=== PATIENT | male | born 1965 | race African-American/Black ===

== ENCOUNTER 2021-06-20 12:51 | Emergency (ER) | payer OTHER | END 2021-06-20 15:40 | disposition home or self-care (01) | LOC: CSHERS 12:51 | DX: M25.521 Pain in right elbow (principal); M10.9 Gout, unspecified; I12.9 Hypertensive chronic kidney disease with stage 1 through stage 4 chronic kidney disease, or unspecified chronic kidney disease; N18.30 Chronic kidney disease, stage 3 unspecified; W19.XXXA Unspecified fall, initial encounter ==

== ENCOUNTER 2021-10-03 15:38 | Inpatient (IN) | payer OTHER ==
[2021-10-03] MEDS ORDERED: Ketorolac Tromethamine 30 MG/ML VIAL ONE (16:16)
[2021-10-03] MEDS ORDERED: Cefepime 2 GM VIAL ONE (16:16)
[2021-10-03] MEDS ORDERED: Vancomycin HCl 500 MG VIAL ONE (16:17)
[2021-10-03] MEDS ORDERED: Clindamycin/D5W 900 MG in Premix Bag 1 BAG IVPB SCH (16:30)
[2021-10-03 16:47] LABS: #Monocytes 1.8 10x3/uL (0.0-1.1); #Neutrophils 16.9 10x3/uL (1.5-8.4); %Basophils 0.2 % (0.0-2.0); %Lymphocytes 5.1 % (18.0-47.0); %Neutrophils 84.9 % (40.0-75.0); Hemoglobin 10.7 g/dL (13.5-17.5); Mean Corpuscular Hemoglobin 31.8 pg (27.0-33.0); Mean Corpuscular Volume 88.4 fl (81.2-95.1); Mean Platelet Volume 9.6 fl (7.4-10.4); Platelet Count 346 10x3/uL (150-450); RBC Distribution Width 11.5 % (11.5-14.5); Red Blood Cell (RBC) Count 3.36 10x6/uL (4.32-5.72); White Blood Cell (WBC) Count 19.9 10x3/uL (3.5-10.5)
[2021-10-03 17:08] LABS: ALT (SGPT) 11 U/L (8-55); AST (SGOT) 22 U/L (5-34); Albumin 3.5 g/dL (3.5-5.0); Alkaline Phosphatase 123 U/L (40-110); Anion Gap 18 mmol/L (10-20); BUN (Urea Nitrogen) 17 mg/dL (8.4-25.7); Bilirubin, Total 0.8 mg/dL (0.2-1.2); Calc. Creatinine Clearance 0 mL/min (70-130); Calcium 9.8 mg/dL (7.8-10.44); Carbon Dioxide 17 mmol/L (22-29); Chloride 96 mmol/L (98-107); Estimated GFR 59; Globulin 5.2 g/dL (2.4-3.5); Glucose 146 mg/dL (70-105); Potassium 4.9 mmol/L (3.5-5.1); Protein, Total 8.7 g/dL (6.0-8.3); Sodium 126 mmol/L (136-145)
[2021-10-03] MEDS ORDERED: Communication Order-Pharmacy FS PRN (19:37)
[2021-10-03] MEDS ORDERED: Piperacillin/Tazobactam 3.375 GM in Sodium Chloride 0.9% 100 ML IVPB SCH (19:45)
[2021-10-03 20:02] VITALS: BMI 24.2
[2021-10-03 20:20] LABS: Magnesium 1.4 mg/dL (1.6-2.6); Uric Acid 10.1 mg/dL (3.5-7.2)
[2021-10-03] MEDS: Lactated Ringer's 1,000 ML IV SCH (20:36)
[2021-10-03] MEDS: Labetalol HCl 100 MG TAB PO SCH (20:38)
[2021-10-03] MEDS: Piperacillin/Tazobactam 3.375 GM in Sodium Chloride 0.9% 100 ML IVPB SCH (23:23)
[2021-10-04 01:23] LABS: SARS-CoV-2 NAA Rapid Test Not Detected (NotDetected)
[2021-10-04 04:34] LABS: #Monocytes 1.6 10x3/uL (0.0-1.1); #Neutrophils 14.2 10x3/uL (1.5-8.4); %Basophils 0.2 % (0.0-2.0); %Eosinophils 0.1 % (0.0-6.0); %Lymphocytes 4.5 % (18.0-47.0); %Monocytes 9.4 % (0.0-10.0); %Neutrophils 85.1 % (40.0-75.0); Hemoglobin 9.1 g/dL (13.5-17.5); Mean Corpuscular HGB CONC 36.8 g/dL (32.0-36.0); Mean Corpuscular Hemoglobin 32.2 pg (27.0-33.0); Mean Corpuscular Volume 87.3 fl (81.2-95.1); Mean Platelet Volume 9.2 fl (7.4-10.4); Platelet Count 313 10x3/uL (150-450); RBC Distribution Width 11.4 % (11.5-14.5); Red Blood Cell (RBC) Count 2.83 10x6/uL (4.32-5.72); White Blood Cell (WBC) Count 16.8 10x3/uL (3.5-10.5)
[2021-10-04 04:47] LABS: Anion Gap 15 mmol/L (10-20); BUN (Urea Nitrogen) 15 mg/dL (8.4-25.7); Calc. Creatinine Clearance 66 mL/min (70-130); Calcium 9.1 mg/dL (7.8-10.44); Carbon Dioxide 18 mmol/L (22-29); Chloride 100 mmol/L (98-107); Estimated GFR 72; Glucose 123 mg/dL (70-105); Potassium 4.4 mmol/L (3.5-5.1); Sodium 129 mmol/L (136-145)
[2021-10-04 05:02] LABS: Ferritin 587.79 ng/mL (22-322)
[2021-10-04] MEDS: Vancomycin HCl 750 MG in Sodium Chloride 0.9% 250 ML 250 ML IVPB SCH ×2 (05:43→18:58)
[2021-10-04] MEDS: Lactated Ringer's 1,000 ML IV SCH ×3 (05:44→23:54)
[2021-10-04] MEDS ORDERED: Sodium Chloride 0.9% 250 ML 250 ML ONE (05:45)
[2021-10-04] MEDS: Piperacillin/Tazobactam 3.375 GM in Sodium Chloride 0.9% 100 ML IVPB SCH ×3 (08:56→23:54)
[2021-10-04] MEDS: Labetalol HCl 100 MG TAB PO SCH (08:57)
[2021-10-04] MEDS: Enoxaparin Sodium 40 MG/0.4 ML SYRINGE SC SCH (08:57)
[2021-10-04] MEDS ORDERED: Magnesium 2 GM/50 ML(in water) 2 GM in Premix Bag 1 BAG IVPB SCH (13:00)
[2021-10-04] MEDS ORDERED: Propranolol HCl 20 MG TAB PO SCH (15:00)
[2021-10-04] MEDS ORDERED: busPIRone HCl 5 MG TAB PO SCH (15:00)
[2021-10-04] MEDS: Metoprolol Tartrate 25 MG TAB PO SCH (21:23)
[2021-10-04] MEDS: Famotidine 20 MG TAB PO SCH (21:23)
[2021-10-05] MEDS: Lactated Ringer's 1,000 ML IV SCH ×3 (04:47→15:36)
[2021-10-05 05:13] LABS: Vancomycin, Trough 14.5 ug/mL
[2021-10-05] MEDS: Vancomycin HCl 750 MG in Sodium Chloride 0.9% 250 ML 250 ML IVPB SCH ×2 (05:59→17:37)
[2021-10-05] MEDS: Metoprolol Tartrate 25 MG TAB PO SCH ×2 (06:10→20:33)
[2021-10-05] MEDS: Levothyroxine Sodium 25 MCG TAB PO SCH (06:10)
[2021-10-05] MEDS ORDERED: Bupivacaine 0.25% HCL 30 ML VIAL ONE (06:59)
[2021-10-05] MEDS ORDERED: PROPOFOL 20 ML ONE (07:04)
[2021-10-05] MEDS ORDERED: Fentanyl 100 MCG/2 ML VIAL ONE (07:04)
[2021-10-05] MEDS ORDERED: Dexamethasone 4 mg/ml Vial ONE (07:34)
[2021-10-05] MEDS ORDERED: Ondansetron PF 4 MG/2 ML Vial ONE (07:34)
[2021-10-05] MEDS ORDERED: Lidocaine 1% PF 5 ML VIAL ONE (07:34)
[2021-10-05] MEDS: Piperacillin/Tazobactam 3.375 GM in Sodium Chloride 0.9% 100 ML IVPB SCH ×3 (10:43→23:53)
[2021-10-05] MEDS: Famotidine 20 MG TAB PO SCH ×2 (11:00→20:33)
[2021-10-05] MEDS: Amlodipine 10 MG TAB PO SCH (11:00)
[2021-10-05] MEDS ORDERED: Cyanocobalamin 1000 MCG/ML VIAL IM SCH (11:00)
[2021-10-05] MEDS: Lisinopril 10 MG TAB PO SCH (11:00)
[2021-10-05] MEDS: Multivitamin W/ Minerals 1 TAB PO SCH (11:01)
[2021-10-05] MEDS: Enoxaparin Sodium 40 MG/0.4 ML SYRINGE SC SCH (11:01)
[2021-10-05] MEDS: Ferrous Sulfate 325 MG TAB PO SCH (11:01)
[2021-10-05] MEDS: Acetaminophen 325 MG TAB PO PRN (18:01)
[2021-10-06] MEDS: Lactated Ringer's 1,000 ML IV SCH ×2 (03:35→09:53)
[2021-10-06] MEDS: Vancomycin HCl 750 MG in Sodium Chloride 0.9% 250 ML 250 ML IVPB SCH ×2 (05:27→17:01)
[2021-10-06] MEDS: Levothyroxine Sodium 25 MCG TAB PO SCH (05:27)
[2021-10-06 05:48] LABS: Vancomycin, Trough 11.1 ug/mL
[2021-10-06] MEDS: Piperacillin/Tazobactam 3.375 GM in Sodium Chloride 0.9% 100 ML IVPB SCH ×3 (09:46→23:19)
[2021-10-06] MEDS: Famotidine 20 MG TAB PO SCH ×2 (09:47→21:37)
[2021-10-06] MEDS: Ferrous Sulfate 325 MG TAB PO SCH (09:47)
[2021-10-06] MEDS: Lisinopril 10 MG TAB PO SCH (09:47)
[2021-10-06] MEDS: Acetaminophen 325 MG TAB PO PRN ×2 (09:47→21:36)
[2021-10-06] MEDS: Multivitamin W/ Minerals 1 TAB PO SCH (09:47)
[2021-10-06] MEDS: Amlodipine 10 MG TAB PO SCH (09:48)
[2021-10-06] MEDS: Enoxaparin Sodium 40 MG/0.4 ML SYRINGE SC SCH (09:48)
[2021-10-06] MEDS: Metoprolol Tartrate 25 MG TAB PO SCH ×2 (09:48→21:37)
[2021-10-06] MEDS: Midazolam HCl 2 mg/2 ml Vial ONE ×2 (16:55→17:03)
[2021-10-06] MEDS: Midazolam HCl 2 mg/2 ml Vial SLOW IVP PRN (17:05)
[2021-10-06] MEDS: Multivitamins, Adult 10 ML, Folic Acid 1 MG, Thiamine HCl 100 MG in Dextrose 5 %-0.45 %... IV SCH (17:22)
[2021-10-07] MEDS: Midazolam HCl 2 mg/2 ml Vial SLOW IVP PRN (00:11)
[2021-10-07] MEDS: Levothyroxine Sodium 25 MCG TAB PO SCH (05:55)
[2021-10-07 06:07] LABS: #Monocytes 1.3 10x3/uL (0.0-1.1); #Neutrophils 12.3 10x3/uL (1.5-8.4); %Basophils 0.1 % (0.0-2.0); %Lymphocytes 5.7 % (18.0-47.0); %Monocytes 8.9 % (0.0-10.0); Hemoglobin 8.6 g/dL (13.5-17.5); Mean Corpuscular HGB CONC 36.4 g/dL (32.0-36.0); Mean Corpuscular Hemoglobin 31.2 pg (27.0-33.0); Mean Corpuscular Volume 85.5 fl (81.2-95.1); Mean Platelet Volume 9.5 fl (7.4-10.4); Platelet Count 436 10x3/uL (150-450); RBC Distribution Width 11.8 % (11.5-14.5); Red Blood Cell (RBC) Count 2.76 10x6/uL (4.32-5.72); White Blood Cell (WBC) Count 14.5 10x3/uL (3.5-10.5)
[2021-10-07 06:08] LABS: Anion Gap 14 mmol/L (10-20); BUN (Urea Nitrogen) 16 mg/dL (8.4-25.7); Calc. Creatinine Clearance 77 mL/min (70-130); Calcium 8.9 mg/dL (7.8-10.44); Carbon Dioxide 21 mmol/L (22-29); Chloride 100 mmol/L (98-107); Estimated GFR 86; Glucose 166 mg/dL (70-105); Magnesium 1.3 mg/dL (1.6-2.6); Potassium 3.3 mmol/L (3.5-5.1); Sodium 132 mmol/L (136-145)
[2021-10-07 06:09] LABS: Vancomycin, Trough 14.8 ug/mL
[2021-10-07] MEDS: Vancomycin HCl 750 MG in Sodium Chloride 0.9% 250 ML 250 ML IVPB SCH (06:16)
[2021-10-07] MEDS: Piperacillin/Tazobactam 3.375 GM in Sodium Chloride 0.9% 100 ML IVPB SCH ×2 (07:45→15:40)
[2021-10-07] MEDS ORDERED: Magnesium 2 GM/50 ML(in water) 2 GM in Premix Bag 1 BAG IVPB SCH (09:00)
[2021-10-07] MEDS: Enoxaparin Sodium 40 MG/0.4 ML SYRINGE SC SCH (10:48)
[2021-10-07] MEDS: Lisinopril 10 MG TAB PO SCH (10:49)
[2021-10-07] MEDS: Metoprolol Tartrate 25 MG TAB PO SCH ×2 (10:49→20:22)
[2021-10-07] MEDS: Multivitamin W/ Minerals 1 TAB PO SCH (10:49)
[2021-10-07] MEDS: Ferrous Sulfate 325 MG TAB PO SCH (10:49)
[2021-10-07] MEDS: Amlodipine 10 MG TAB PO SCH (10:50)
[2021-10-07] MEDS: Famotidine 20 MG TAB PO SCH ×2 (10:50→20:25)
[2021-10-07] MEDS: Colchicine 0.6 MG TAB PO SCH (12:49)
[2021-10-07] MEDS: Multivitamins, Adult 10 ML, Folic Acid 1 MG, Thiamine HCl 100 MG in Dextrose 5 %-0.45 %... IV SCH (16:55)
[2021-10-07] MEDS: Acetaminophen 325 MG TAB PO PRN (20:22)
[2021-10-08] MEDS: Piperacillin/Tazobactam 3.375 GM in Sodium Chloride 0.9% 100 ML IVPB SCH ×2 (01:07→07:45)
[2021-10-08] MEDS ORDERED: Electrolyte Replacement Protocol FS PRN (01:15)
[2021-10-08] MEDS ORDERED: Potassium Chloride 20 MEQ TAB PO SCH (02:00)
[2021-10-08] MEDS: Magnesium 2 GM/50 ML(in water) 2 GM in Premix Bag 1 BAG IVPB SCH ×2 (02:33→03:48)
[2021-10-08] MEDS: Levothyroxine Sodium 25 MCG TAB PO SCH (06:10)
[2021-10-08] MEDS: Enoxaparin Sodium 40 MG/0.4 ML SYRINGE SC SCH (08:52)
[2021-10-08] MEDS: Multivitamin W/ Minerals 1 TAB PO SCH (08:53)
[2021-10-08] MEDS: Metoprolol Tartrate 25 MG TAB PO SCH (08:53)
[2021-10-08] MEDS: Acetaminophen 325 MG TAB PO PRN (08:53)
[2021-10-08] MEDS: Amlodipine 10 MG TAB PO SCH (08:54)
[2021-10-08] MEDS: Ferrous Sulfate 325 MG TAB PO SCH (08:54)
[2021-10-08] MEDS: Lisinopril 10 MG TAB PO SCH (08:54)
[2021-10-08] MEDS: Colchicine 0.6 MG TAB PO SCH (08:55)
[2021-10-08] MEDS: Famotidine 20 MG TAB PO SCH (08:55)
[2021-10-08 09:44] LABS: Magnesium 2.3 mg/dL (1.6-2.6)
[2021-10-08 11:26] VITALS: BP 127/72; TEMP 99.8
[2021-10-08] MEDS: Potassium Chloride 20 MEQ TAB PO SCH ×2 (11:42→13:04)
[2021-10-09] MEDS ORDERED: Multivitamin W/ Minerals 1 TAB PO SCH (09:00)
== END 2021-10-08 12:30 | disposition home or self-care (01) | DRG 854 ==
LOC: CSHERS 15:38 → CSHTELE 19:15
PROVIDERS: ADMIT Family Medicine; ATTEND Internal Medicine
PROC: 0Y6M0ZB Detachment at Right Foot, Partial 2nd Ray, Open Approach (ICD-10-PCS; 2021-10-05)
PROC: HZ2ZZZZ Detoxification Services for Substance Abuse Treatment (ICD-10-PCS; principal; 2021-10-06)
DX: A40.8 Other streptococcal sepsis (principal); E87.1 Hypo-osmolality and hyponatremia; F10.131 Alcohol abuse with withdrawal delirium; I96 Gangrene, not elsewhere classified; M86.8X7 Other osteomyelitis, ankle and foot; M10.9 Gout, unspecified; N18.30 Chronic kidney disease, stage 3 unspecified; D63.1 Anemia in chronic kidney disease; I12.9 Hypertensive chronic kidney disease with stage 1 through stage 4 chronic kidney disease, or unspecified chronic kidney disease; E83.42 Hypomagnesemia; E53.8 Deficiency of other specified B group vitamins; Z20.822 Contact with and (suspected) exposure to COVID-19; Z98.890 Other specified postprocedural states; Z79.899 Other long term (current) drug therapy; Z79.890 Hormone replacement therapy
CPT/HCPCS: 36415; 80048; 80053; 80202; 82565; 82607; 82728; 83605; 83735; 84132; 84484; 84520; 84550; 85025; 85652; 86140; 87040; 87077; 87186; 88305; 88311; 93005; 93306; 93923; 96365; 96367; 96375; 97139; J0692; J1100; J1650; J1885; J2250; J2405; J2543; J2704; J3010; J3370; J3411; J3420; J3475; J3490; J7042; J7050; J7120; S0020; U0002

== ENCOUNTER 2021-10-14 09:27 | Emergency (ER) | payer OTHER | END 2021-10-14 10:08 | disposition home or self-care (01) | LOC: CSHERS 09:27 | DX: M79.89 Other specified soft tissue disorders (principal); I10 Essential (primary) hypertension; M10.9 Gout, unspecified | CPT/HCPCS: 99283 ==

== ENCOUNTER 2021-11-29 13:27 | Observation (INO) | payer OTHER ==
[2021-11-29 13:55] LABS: #Eosinphils 0.1 10x3/uL (0.0-0.5); #Monocytes 1.4 10x3/uL (0.0-1.1); #Neutrophils 10.4 10x3/uL (1.5-8.4); %Basophils 0.2 % (0.0-2.0); %Eosinophils 0.5 % (0.0-6.0); %Monocytes 10.6 % (0.0-10.0); %Neutrophils 78.2 % (40.0-75.0); Hemoglobin 8.9 g/dL (13.5-17.5); Mean Corpuscular HGB CONC 35.3 g/dL (32.0-36.0); Mean Corpuscular Hemoglobin 31.4 pg (27.0-33.0); Mean Platelet Volume 9.3 fl (7.4-10.4); Platelet Count 402 10x3/uL (150-450); Red Blood Cell (RBC) Count 2.83 10x6/uL (4.32-5.72); White Blood Cell (WBC) Count 13.2 10x3/uL (3.5-10.5)
[2021-11-29 14:22] LABS: ALT (SGPT) Less than 6 U/L (8-55); AST (SGOT) 13 U/L (5-34); Albumin 3.2 g/dL (3.5-5.0); Alkaline Phosphatase 85 U/L (40-110); Anion Gap 15 mmol/L (10-20); BUN (Urea Nitrogen) 19 mg/dL (8.4-25.7); Bilirubin, Total 0.3 mg/dL (0.2-1.2); CK (CPK) 47 U/L (30-200); Calc. Creatinine Clearance 0 mL/min (70-130); Calcium 8.4 mg/dL (7.8-10.44); Carbon Dioxide 14 mmol/L (22-29); Chloride 101 mmol/L (98-107); Estimated GFR 54; Globulin 4.1 g/dL (2.4-3.5); Glucose 134 mg/dL (70-105); Potassium 4.2 mmol/L (3.5-5.1); Protein, Total 7.3 g/dL (6.0-8.3); Sodium 126 mmol/L (136-145)
[2021-11-29 18:45] LABS: Bilirubin Neg (Negative); Blood, Urine 25 (Negative); Glucose, Urine (Dipstick) Normal (Negative); Ketone, Urine Negative (Negative); Leukocyte Negative (Negative); Nitrite Negative (Negative); Protein, Urine (Dipstick) 100 mg/dl (Neg-Trace); Specific Gravity, Urine 1.015 (1.005-1.030); Urobilinogen Normal mg/dL (Less than 2)
[2021-11-29 18:46] LABS: Clarity Hazy (Clear)
[2021-11-29 18:55] LABS: Bacteria/HPF 2+ HPF (None Seen); Mucous/LPF Rare LPF (<2+); RBC/HPF 0-3 HPF (0-3); Squamous Epithelial 0-3 HPF (0-3); WBC/HPF 0-3 HPF (0-3)
[2021-11-29] MEDS ORDERED: Senokot S 8.6-50 MG TAB PO PRN (21:22)
[2021-11-29] MEDS ORDERED: Ondansetron PF 4 MG/2 ML Vial IVP PRN (21:22)
[2021-11-29] MEDS ORDERED: Calcium Carbonate 500 MG ChewTAB PO PRN (21:22)
[2021-11-29] MEDS ORDERED: Acetaminophen 325 MG TAB PO PRN (21:22)
[2021-11-29] MEDS ORDERED: Guaifenesin DM 100-10/5 ML UDCUP PO PRN (21:22)
[2021-11-29] MEDS ORDERED: Lorazepam 2 MG/ML VIAL SLOW IVP PRN (21:25)
[2021-11-29] MEDS ORDERED: Metoprolol Tartrate 25 MG TAB PO SCH (21:30)
[2021-11-29] MEDS ORDERED: Thiamine HCl 200 MG/2 ML VIAL SLOW IVP SCH (21:30)
[2021-11-29] MEDS ORDERED: Sodium Chloride 0.9% 500 ML IV SCH (21:30)
[2021-11-29] MEDS ORDERED: Magnesium Sulfate/D5W 1 GM/100 ML BAG IVPB SCH (21:30)
[2021-11-29] MEDS ORDERED: Thiamine HCl 200 MG/2 ML VIAL ONE (23:24)
[2021-11-29] MEDS ORDERED: Magnesium 2 GM/50 ML BAG (IN WATER) ONE (23:24)
[2021-11-29] MEDS ORDERED: chlordiazePOXIDE HCl 5 MG CAP ONE (23:27)
[2021-11-29] MEDS: chlordiazePOXIDE HCl 5 MG CAP PO SCH (23:33)
[2021-11-29] MEDS ORDERED: Metoprolol Tartrate 25 MG TAB ONE (23:40)
[2021-11-30 03:39] LABS: #Basophils 0.1 10x3/uL (0.0-0.2); #Eosinphils 0.2 10x3/uL (0.0-0.5); #Monocytes 1.4 10x3/uL (0.0-1.1); #Neutrophils 8.7 10x3/uL (1.5-8.4); %Basophils 0.4 % (0.0-2.0); %Eosinophils 1.4 % (0.0-6.0); %Monocytes 11.8 % (0.0-10.0); %Neutrophils 74.9 % (40.0-75.0); Hemoglobin 9.3 g/dL (13.5-17.5); Mean Corpuscular HGB CONC 35.9 g/dL (32.0-36.0); Mean Corpuscular Hemoglobin 31.5 pg (27.0-33.0); Mean Corpuscular Volume 87.8 fl (81.2-95.1); Mean Platelet Volume 9.4 fl (7.4-10.4); Platelet Count 443 10x3/uL (150-450); RBC Distribution Width 13.8 % (11.5-14.5); Red Blood Cell (RBC) Count 2.95 10x6/uL (4.32-5.72); White Blood Cell (WBC) Count 11.6 10x3/uL (3.5-10.5)
[2021-11-30 03:58] LABS: Anion Gap 16 mmol/L (10-20); BUN (Urea Nitrogen) 17 mg/dL (8.4-25.7); CK (CPK) 78 U/L (30-200); Calc. Creatinine Clearance 0 mL/min (70-130); Calcium 9.3 mg/dL (7.8-10.44); Carbon Dioxide 15 mmol/L (22-29); Chloride 108 mmol/L (98-107); Estimated GFR 70; Glucose 112 mg/dL (70-105); Magnesium 1.8 mg/dL (1.6-2.6); Phosphorus 2.7 mg/dL (2.3-4.7); Potassium 4.7 mmol/L (3.5-5.1); Sodium 134 mmol/L (136-145)
[2021-11-30] MEDS ORDERED: chlordiazePOXIDE HCl 5 MG CAP ONE (06:04)
[2021-11-30] MEDS: chlordiazePOXIDE HCl 5 MG CAP PO SCH ×3 (06:05→21:10)
[2021-11-30] MEDS: Levothyroxine Sodium 25 MCG TAB PO SCH (06:05)
[2021-11-30] MEDS ORDERED: Aspirin 81 mg Enteric Coated Tablet ONE (07:40)
[2021-11-30] MEDS ORDERED: Metoprolol Tartrate 25 MG TAB ONE (07:40)
[2021-11-30] MEDS ORDERED: Thiamine 100 MG TAB ONE (07:41)
[2021-11-30] MEDS ORDERED: Multivitamin W/ Minerals 1 TAB ONE (07:41)
[2021-11-30] MEDS ORDERED: Enoxaparin Sodium 40 MG/0.4 ML SYRINGE ONE (07:41)
[2021-11-30] MEDS ORDERED: Amlodipine 5 MG TAB ONE (07:42)
[2021-11-30] MEDS ORDERED: Folic Acid 1 MG TAB ONE (07:42)
[2021-11-30] MEDS ORDERED: Famotidine 20 MG TAB ONE (07:43)
[2021-11-30] MEDS: Amlodipine 10 MG TAB PO SCH (07:56)
[2021-11-30] MEDS: Ferrous Sulfate 325 MG TAB PO SCH (07:56)
[2021-11-30] MEDS: Folic Acid 1 MG TAB PO SCH (07:57)
[2021-11-30] MEDS: Thiamine 100 MG TAB PO SCH (07:57)
[2021-11-30] MEDS: Enoxaparin Sodium 40 MG/0.4 ML SYRINGE SC SCH (07:57)
[2021-11-30] MEDS: Multivitamin W/ Minerals 1 TAB PO SCH (07:57)
[2021-11-30] MEDS: Metoprolol Tartrate 25 MG TAB PO SCH ×2 (07:57→21:10)
[2021-11-30] MEDS: Aspirin 81 mg Enteric Coated Tablet PO SCH (07:57)
[2021-11-30] MEDS: Famotidine 20 MG TAB PO SCH ×2 (07:57→21:10)
[2021-11-30 13:00] LABS: Hemoglobin A1c 5.4 % (4.0-6.0)
[2021-11-30 13:57] VITALS: BMI 21.7
[2021-11-30] MEDS ORDERED: Rosuvastatin 10 MG TAB PO SCH (21:00)
[2021-11-30 22:08] LABS: Potassium, Urine 14.1 mmol/L
[2021-12-01] MEDS: Levothyroxine Sodium 25 MCG TAB PO SCH (06:03)
[2021-12-01 06:51] LABS: #Basophils 0.1 10x3/uL (0.0-0.2); #Eosinphils 0.3 10x3/uL (0.0-0.5); #Monocytes 0.9 10x3/uL (0.0-1.1); #Neutrophils 8.3 10x3/uL (1.5-8.4); %Basophils 0.5 % (0.0-2.0); %Eosinophils 2.5 % (0.0-6.0); %Lymphocytes 8.8 % (18.0-47.0); %Monocytes 8.8 % (0.0-10.0); %Neutrophils 78.8 % (40.0-75.0); Hemoglobin 9.4 g/dL (13.5-17.5); Mean Corpuscular HGB CONC 36.4 g/dL (32.0-36.0); Mean Corpuscular Hemoglobin 31.5 pg (27.0-33.0); Mean Corpuscular Volume 86.6 fl (81.2-95.1); Mean Platelet Volume 9.1 fl (7.4-10.4); Platelet Count 464 10x3/uL (150-450); RBC Distribution Width 13.6 % (11.5-14.5); Red Blood Cell (RBC) Count 2.98 10x6/uL (4.32-5.72); White Blood Cell (WBC) Count 10.5 10x3/uL (3.5-10.5)
[2021-12-01 07:09] LABS: ALT (SGPT) 8 U/L (8-55); AST (SGOT) 13 U/L (5-34); Albumin 3.1 g/dL (3.5-5.0); Alkaline Phosphatase 88 U/L (40-110); Anion Gap 13 mmol/L (10-20); BUN (Urea Nitrogen) 16 mg/dL (8.4-25.7); Bilirubin, Total 0.2 mg/dL (0.2-1.2); Calc. Creatinine Clearance 62 mL/min (70-130); Calcium 9.4 mg/dL (7.8-10.44); Carbon Dioxide 18 mmol/L (22-29); Chloride 108 mmol/L (98-107); Estimated GFR 76; Globulin 4.6 g/dL (2.4-3.5); Glucose 132 mg/dL (70-105); Potassium 3.9 mmol/L (3.5-5.1); Protein, Total 7.7 g/dL (6.0-8.3); Sodium 135 mmol/L (136-145)
[2021-12-01] MEDS: Metoprolol Tartrate 25 MG TAB PO SCH (08:50)
[2021-12-01] MEDS: Ferrous Sulfate 325 MG TAB PO SCH (08:50)
[2021-12-01] MEDS: Thiamine 100 MG TAB PO SCH (08:50)
[2021-12-01] MEDS: Enoxaparin Sodium 40 MG/0.4 ML SYRINGE SC SCH (08:50)
[2021-12-01] MEDS: Folic Acid 1 MG TAB PO SCH (08:50)
[2021-12-01] MEDS: Famotidine 20 MG TAB PO SCH (08:50)
[2021-12-01] MEDS: Amlodipine 10 MG TAB PO SCH (08:50)
[2021-12-01] MEDS: Aspirin 81 mg Enteric Coated Tablet PO SCH (08:50)
[2021-12-01] MEDS: Multivitamin W/ Minerals 1 TAB PO SCH (08:50)
[2021-12-01 10:02] LABS: Thyroid Stimulating Hormone 9.4907 uIU/mL (0.35-4.94)
[2021-12-01 11:47] LABS: Free T4 (Free Thyroxine) 0.89 ng/dL (0.70-1.48)
[2021-12-01 18:44] VITALS: BP 92/53; TEMP 97.9
== END 2021-12-01 19:10 | disposition left against medical advice (07) ==
LOC: CSHERS 13:27 → CSHERHOLD 22:58 → INTOOBSV 22:58 → CSHTELE 11-30 12:35
PROVIDERS: ADMIT Emergency Medicine; ATTEND Family Medicine
DX: E87.1 Hypo-osmolality and hyponatremia (principal); N17.9 Acute kidney failure, unspecified; R42 Dizziness and giddiness; F10.929 Alcohol use, unspecified with intoxication, unspecified; I10 Essential (primary) hypertension; F10.930 Alcohol use, unspecified with withdrawal, uncomplicated; D64.9 Anemia, unspecified; M10.9 Gout, unspecified; R73.9 Hyperglycemia, unspecified; I73.9 Peripheral vascular disease, unspecified; E03.9 Hypothyroidism, unspecified; M86.9 Osteomyelitis, unspecified; Z20.822 Contact with and (suspected) exposure to COVID-19; R26.89 Other abnormalities of gait and mobility; Z79.82 Long term (current) use of aspirin; Z79.899 Other long term (current) drug therapy; Z89.421 Acquired absence of other right toe(s)
CPT/HCPCS: 36415; 70450; 71045; 80048; 80053; 81003; 81015; 82436; 82533; 82550; 83036; 83735; 83930; 83935; 84100; 84133; 84300; 84439; 84443; 84481; 84484; 85025; 93005; 96360; 96372; 97139; G0378; J1650; J3411; J3475; J7030; U0003; U0005

== ENCOUNTER 2021-12-12 11:10 | Inpatient (IN) | payer OTHER ==
[2021-12-12 12:06] LABS: Hemoglobin 8.7 g/dL (13.5-17.5); Mean Corpuscular HGB CONC 36.7 g/dL (32.0-36.0); Mean Corpuscular Hemoglobin 30.1 pg (27.0-33.0); Mean Platelet Volume 8.9 fl (7.4-10.4); Platelet Count 661 10x3/uL (150-450); RBC Distribution Width 13.4 % (11.5-14.5); Red Blood Cell (RBC) Count 2.89 10x6/uL (4.32-5.72); White Blood Cell (WBC) Count 24.4 10x3/uL (3.5-10.5)
[2021-12-12 12:07] LABS: MDiff Complete? YES
[2021-12-12 12:18] LABS: PTT 35.5 sec (22.0-33.0); Prothrombin Time 10.9 sec (9.5-12.1)
[2021-12-12 12:21] LABS: ALT (SGPT) 9 U/L (8-55); AST (SGOT) 20 U/L (5-34); Albumin 3.3 g/dL (3.5-5.0); Alkaline Phosphatase 125 U/L (40-110); Anion Gap 17 mmol/L (10-20); BUN (Urea Nitrogen) 22 mg/dL (8.4-25.7); Bilirubin, Total 0.4 mg/dL (0.2-1.2); Calc. Creatinine Clearance 0 mL/min (70-130); Calcium 9.4 mg/dL (7.8-10.44); Carbon Dioxide 11 mmol/L (22-29); Chloride 100 mmol/L (98-107); Estimated GFR 44; Globulin 5.2 g/dL (2.4-3.5); Glucose 148 mg/dL (70-105); Potassium 3.5 mmol/L (3.5-5.1); Protein, Total 8.5 g/dL (6.0-8.3); Sodium 124 mmol/L (136-145)
[2021-12-12 12:42] LABS: Lymphocytes 2 % (21-51); Monocytes 4 % (0-10); Neutrophil 93 % (42-75); Reactive Lymphocytes 1 % (0-10)
[2021-12-12 12:43] LABS: Platelet Morphology Comment Appears Increased
[2021-12-12] MEDS ORDERED: Piperacillin/Tazobactam 3.375 GM VIAL ONE (13:31)
[2021-12-12 14:38] LABS: SARS-CoV-2 NAA Rapid Test Not Detected (NotDetected)
[2021-12-12] MEDS ORDERED: Ondansetron ODT 4 MG TAB PO PRN (17:58)
[2021-12-12] MEDS ORDERED: Lorazepam 1 MG TAB PO PRN (17:58)
[2021-12-12] MEDS ORDERED: Acetaminophen 325 MG TAB PO PRN (17:59)
[2021-12-12] MEDS ORDERED: Electrolyte Replacement Protocol 1 EACH FS SCH (18:00)
[2021-12-12] MEDS ORDERED: HYDROcodone/Acetaminophen 5/325 mg Tablet PO PRN (18:02)
[2021-12-12 21:40] VITALS: BMI 21.7
[2021-12-12] MEDS ORDERED: Vancomycin HCl 500 MG in Sodium Chloride 0.9% 100 ML IVPB SCH (22:00)
[2021-12-12 22:10] LABS: Anion Gap 15 mmol/L (10-20); BUN (Urea Nitrogen) 20 mg/dL (8.4-25.7); Calc. Creatinine Clearance 47 mL/min (70-130); Calcium 8.5 mg/dL (7.8-10.44); Carbon Dioxide 14 mmol/L (22-29); Chloride 103 mmol/L (98-107); Estimated GFR 54; Glucose 126 mg/dL (70-105); Magnesium 1.3 mg/dL (1.6-2.6); Potassium 3.4 mmol/L (3.5-5.1); Sodium 129 mmol/L (136-145)
[2021-12-12] MEDS: Lorazepam 1 MG TAB PO SCH (22:13)
[2021-12-12] MEDS: Piperacillin/Tazobactam 3.375 GM in Sodium Chloride 0.9% 100 ML IVPB SCH (22:13)
[2021-12-13] MEDS: Lorazepam 1 MG TAB PO SCH ×4 (02:29→20:26)
[2021-12-13] MEDS: Piperacillin/Tazobactam 3.375 GM in Sodium Chloride 0.9% 100 ML IVPB SCH (05:43)
[2021-12-13 06:08] LABS: #Basophils 0.1 10x3/uL (0.0-0.2); #Eosinphils 0.1 10x3/uL (0.0-0.5); #Monocytes 1.2 10x3/uL (0.0-1.1); #Neutrophils 15.6 10x3/uL (1.5-8.4); %Basophils 0.4 % (0.0-2.0); %Eosinophils 0.6 % (0.0-6.0); %Lymphocytes 3.6 % (18.0-47.0); %Neutrophils 87.8 % (40.0-75.0); Hemoglobin 7.4 g/dL (13.5-17.5); Mean Corpuscular Hemoglobin 30.2 pg (27.0-33.0); Mean Corpuscular Volume 81.6 fl (81.2-95.1); Mean Platelet Volume 9.2 fl (7.4-10.4); Platelet Count 569 10x3/uL (150-450); RBC Distribution Width 13.4 % (11.5-14.5); Red Blood Cell (RBC) Count 2.45 10x6/uL (4.32-5.72); White Blood Cell (WBC) Count 17.7 10x3/uL (3.5-10.5)
[2021-12-13 06:21] LABS: Anion Gap 14 mmol/L (10-20); BUN (Urea Nitrogen) 22 mg/dL (8.4-25.7); Calc. Creatinine Clearance 42 mL/min (70-130); Calcium 8.2 mg/dL (7.8-10.44); Carbon Dioxide 15 mmol/L (22-29); Chloride 103 mmol/L (98-107); Estimated GFR 46; Glucose 130 mg/dL (70-105); Magnesium 1.4 mg/dL (1.6-2.6); Sodium 129 mmol/L (136-145)
[2021-12-13 06:32] LABS: Potassium 2.9 mmol/L (3.5-5.1)
[2021-12-13] MEDS: Cefepime 2 GM in Sodium Chloride 0.9% 100 ML IVPB SCH ×2 (09:40→20:26)
[2021-12-13] MEDS: Multivitamin W/ Minerals 1 TAB PO SCH (09:48)
[2021-12-13] MEDS: Ferrous Sulfate 325 MG TAB PO SCH (09:49)
[2021-12-13] MEDS: Potassium Chloride 20 MEQ TAB PO SCH ×3 (09:49→16:18)
[2021-12-13] MEDS: Enoxaparin Sodium 40 MG/0.4 ML SYRINGE SC SCH (09:49)
[2021-12-13] MEDS: Levothyroxine Sodium 25 MCG TAB PO SCH (09:49)
[2021-12-13] MEDS: Magnesium 2 GM/50 ML(in water) 2 GM in Premix Bag 1 BAG IVPB SCH (10:55)
[2021-12-13] MEDS: Sodium Chloride 0.9% 1,000 ML IV SCH ×2 (11:45→20:32)
[2021-12-13] MEDS ORDERED: Sodium Chloride 0.9% 1,000 ML IV SCH (11:45)
[2021-12-13] MEDS ORDERED: Potassium Chloride 20 MEQ TAB PO SCH (16:15)
[2021-12-13] MEDS: Vancomycin HCl 1 GM in Sodium Chloride 0.9% 250 ML 250 ML IVPB SCH (16:16)
[2021-12-13] MEDS ORDERED: Lorazepam 1 MG TAB PO PRN (17:58)
[2021-12-13 18:28] LABS: Potassium 3.9 mmol/L (3.5-5.1)
[2021-12-13 23:56] LABS: Amphetamine Not Detected (NotDetected); Barbiturates Screen Not Detected (NotDetected); Benzodiazepine Screen Detected (NotDetected); Cocaine Metabolite Screen Not Detected (NotDetected); Methadone Not Detected (NotDetected); Methamphetamine Not Detected (NotDetected); Opiate Screen Not Detected (NotDetected); Oxycodone Screen Not Detected (NotDetected); Phencyclidine (PCP) Not Detected (NotDetected); THC/Cannabinoid Screen Not Detected (NotDetected); Tricyclic Screen Not Detected (NotDetected)
[2021-12-14] MEDS: Lorazepam 1 MG TAB PO SCH ×4 (01:42→20:06)
[2021-12-14 05:06] LABS: Anion Gap 12 mmol/L (10-20); BUN (Urea Nitrogen) 20 mg/dL (8.4-25.7); Calc. Creatinine Clearance 46 mL/min (70-130); Calcium 8.7 mg/dL (7.8-10.44); Carbon Dioxide 15 mmol/L (22-29); Chloride 109 mmol/L (98-107); Estimated GFR 53; Glucose 130 mg/dL (70-105); Iron 9 ug/dL (65-175); Iron Binding Capacity, Total 151 mcg/dL (261-462); Magnesium 1.8 mg/dL (1.6-2.6); Potassium 3.9 mmol/L (3.5-5.1); Sodium 132 mmol/L (136-145)
[2021-12-14 05:10] LABS: #Basophils 0.1 10x3/uL (0.0-0.2); #Eosinphils 0.2 10x3/uL (0.0-0.5); #Monocytes 1.2 10x3/uL (0.0-1.1); #Neutrophils 11.2 10x3/uL (1.5-8.4); %Basophils 0.4 % (0.0-2.0); %Eosinophils 1.2 % (0.0-6.0); %Lymphocytes 5.4 % (18.0-47.0); %Monocytes 8.7 % (0.0-10.0); %Neutrophils 83.6 % (40.0-75.0); Hemoglobin 7.9 g/dL (13.5-17.5); Mean Corpuscular HGB CONC 36.7 g/dL (32.0-36.0); Mean Corpuscular Hemoglobin 30.6 pg (27.0-33.0); Mean Corpuscular Volume 83.3 fl (81.2-95.1); Mean Platelet Volume 9.1 fl (7.4-10.4); Platelet Count 604 10x3/uL (150-450); RBC Distribution Width 13.9 % (11.5-14.5); Red Blood Cell (RBC) Count 2.58 10x6/uL (4.32-5.72); White Blood Cell (WBC) Count 13.3 10x3/uL (3.5-10.5)
[2021-12-14 05:23] LABS: Ferritin 750.24 ng/mL (22-322)
[2021-12-14] MEDS: Levothyroxine Sodium 25 MCG TAB PO SCH (09:49)
[2021-12-14] MEDS: Ferrous Sulfate 325 MG TAB PO SCH (09:49)
[2021-12-14] MEDS: Enoxaparin Sodium 40 MG/0.4 ML SYRINGE SC SCH (09:49)
[2021-12-14] MEDS: Multivitamin W/ Minerals 1 TAB PO SCH (09:49)
[2021-12-14] MEDS: Magnesium 2 GM/50 ML(in water) 2 GM in Premix Bag 1 BAG IVPB SCH (09:52)
[2021-12-14] MEDS: Cefepime 2 GM in Sodium Chloride 0.9% 100 ML IVPB SCH ×2 (09:53→21:12)
[2021-12-14] MEDS: Sodium Chloride 0.9% 1,000 ML IV SCH ×2 (09:53→15:55)
[2021-12-14] MEDS ORDERED: Magnesium 2 GM/50 ML(in water) 2 GM in Premix Bag 1 BAG IVPB SCH ×2 (10:00→20:00)
[2021-12-14] MEDS ORDERED: Bupivacaine PF 0.5% 30 ML VIAL ONE (13:05)
[2021-12-14] MEDS ORDERED: PROPOFOL 20 ML ONE (13:14)
[2021-12-14] MEDS ORDERED: Lidocaine 2% PF 5 ML VIAL ONE (13:15)
[2021-12-14] MEDS ORDERED: Morphine 2 MG/ML VIAL SLOW IVP PRN (15:40)
[2021-12-14] MEDS ORDERED: Morphine 4 MG/ML VIAL SLOW IVP PRN (15:41)
[2021-12-14] MEDS ORDERED: Lorazepam 1 MG TAB PO PRN (17:58)
[2021-12-14] MEDS: Vancomycin HCl 750 MG in Sodium Chloride 0.9% 250 ML 250 ML IVPB SCH (18:00)
[2021-12-14] MEDS: Lorazepam 0.5 MG TAB PO SCH (20:06)
[2021-12-14] MEDS: Vancomycin HCl 1 GM in Sodium Chloride 0.9% 250 ML 250 ML IVPB SCH (20:08)
[2021-12-15] MEDS: Lorazepam 0.5 MG TAB PO SCH ×4 (01:13→22:24)
[2021-12-15] MEDS: Sodium Chloride 0.9% 1,000 ML IV SCH ×3 (05:38→22:29)
[2021-12-15 06:25] LABS: #Monocytes 0.8 10x3/uL (0.0-1.1); #Neutrophils 11.1 10x3/uL (1.5-8.4); %Basophils 0.1 % (0.0-2.0); %Lymphocytes 4.9 % (18.0-47.0); %Monocytes 6.4 % (0.0-10.0); Hemoglobin 7.6 g/dL (13.5-17.5); Mean Corpuscular HGB CONC 36.7 g/dL (32.0-36.0); Mean Corpuscular Hemoglobin 30.3 pg (27.0-33.0); Mean Corpuscular Volume 82.5 fl (81.2-95.1); Mean Platelet Volume 9.2 fl (7.4-10.4); Platelet Count 587 10x3/uL (150-450); Red Blood Cell (RBC) Count 2.51 10x6/uL (4.32-5.72); White Blood Cell (WBC) Count 12.6 10x3/uL (3.5-10.5)
[2021-12-15 06:36] LABS: Anion Gap 13 mmol/L (10-20); BUN (Urea Nitrogen) 20 mg/dL (8.4-25.7); Calc. Creatinine Clearance 53 mL/min (70-130); Calcium 8.7 mg/dL (7.8-10.44); Carbon Dioxide 15 mmol/L (22-29); Chloride 108 mmol/L (98-107); Estimated GFR 62; Glucose 204 mg/dL (70-105); Magnesium 2.4 mg/dL (1.6-2.6); Potassium 3.6 mmol/L (3.5-5.1); Sodium 132 mmol/L (136-145)
[2021-12-15] MEDS: Ferrous Sulfate 325 MG TAB PO SCH (09:28)
[2021-12-15] MEDS: Enoxaparin Sodium 40 MG/0.4 ML SYRINGE SC SCH (09:28)
[2021-12-15] MEDS: Cyanocobalamin (Vitamin B-12) 1,000 MCG TAB PO SCH (09:29)
[2021-12-15] MEDS: Levothyroxine Sodium 25 MCG TAB PO SCH (09:29)
[2021-12-15] MEDS: Cefepime 2 GM in Sodium Chloride 0.9% 100 ML IVPB SCH ×2 (09:29→22:24)
[2021-12-15] MEDS: Multivitamin W/ Minerals 1 TAB PO SCH (09:29)
[2021-12-15] MEDS ORDERED: Lorazepam 0.5 MG TAB PO PRN (17:58)
[2021-12-15] MEDS: Vancomycin HCl 750 MG in Sodium Chloride 0.9% 250 ML 250 ML IVPB SCH (18:00)
[2021-12-16 04:19] LABS: #Eosinphils 0.1 10x3/uL (0.0-0.5); #Monocytes 0.8 10x3/uL (0.0-1.1); #Neutrophils 7.8 10x3/uL (1.5-8.4); %Basophils 0.3 % (0.0-2.0); %Lymphocytes 10.1 % (18.0-47.0); %Monocytes 7.9 % (0.0-10.0); Hemoglobin 7.5 g/dL (13.5-17.5); Mean Corpuscular Hemoglobin 29.3 pg (27.0-33.0); Mean Corpuscular Volume 83.6 fl (81.2-95.1); Mean Platelet Volume 8.8 fl (7.4-10.4); Platelet Count 587 10x3/uL (150-450); RBC Distribution Width 13.7 % (11.5-14.5); Red Blood Cell (RBC) Count 2.56 10x6/uL (4.32-5.72); White Blood Cell (WBC) Count 9.7 10x3/uL (3.5-10.5)
[2021-12-16 04:23] LABS: Anion Gap 12 mmol/L (10-20); BUN (Urea Nitrogen) 17 mg/dL (8.4-25.7); Calc. Creatinine Clearance 67 mL/min (70-130); Calcium 8.6 mg/dL (7.8-10.44); Carbon Dioxide 17 mmol/L (22-29); Chloride 107 mmol/L (98-107); Estimated GFR 82; Glucose 118 mg/dL (70-105); Magnesium 1.4 mg/dL (1.6-2.6); Potassium 3.4 mmol/L (3.5-5.1); Sodium 133 mmol/L (136-145)
[2021-12-16] MEDS: Enoxaparin Sodium 40 MG/0.4 ML SYRINGE SC SCH (10:42)
[2021-12-16] MEDS: Cefepime 2 GM in Sodium Chloride 0.9% 100 ML IVPB SCH ×2 (10:42→21:10)
[2021-12-16] MEDS: Multivitamin W/ Minerals 1 TAB PO SCH (10:42)
[2021-12-16] MEDS: Levothyroxine Sodium 25 MCG TAB PO SCH (10:43)
[2021-12-16] MEDS: Cyanocobalamin (Vitamin B-12) 1,000 MCG TAB PO SCH (10:43)
[2021-12-16] MEDS: Ferrous Sulfate 325 MG TAB PO SCH ×2 (10:43→21:10)
[2021-12-16] MEDS ORDERED: Potassium Chloride 20 MEQ TAB PO SCH (16:30)
[2021-12-16 16:42] LABS: Vancomycin, Trough 17.2 ug/mL
[2021-12-16] MEDS: Vancomycin HCl 750 MG in Sodium Chloride 0.9% 250 ML 250 ML IVPB SCH (19:19)
[2021-12-16] MEDS: Sodium Chloride 0.9% 1,000 ML IV SCH ×2 (19:19)
[2021-12-16] MEDS: Magnesium Oxide 400 MG TAB PO SCH (21:10)
[2021-12-17 05:58] LABS: #Eosinphils 0.2 10x3/uL (0.0-0.5); #Monocytes 0.9 10x3/uL (0.0-1.1); #Neutrophils 7.9 10x3/uL (1.5-8.4); %Basophils 0.4 % (0.0-2.0); %Eosinophils 2.3 % (0.0-6.0); %Lymphocytes 9.8 % (18.0-47.0); %Monocytes 8.7 % (0.0-10.0); %Neutrophils 77.9 % (40.0-75.0); Hemoglobin 7.3 g/dL (13.5-17.5); Mean Corpuscular HGB CONC 36.5 g/dL (32.0-36.0); Mean Corpuscular Volume 82.3 fl (81.2-95.1); Mean Platelet Volume 9.3 fl (7.4-10.4); Platelet Count 522 10x3/uL (150-450); RBC Distribution Width 13.7 % (11.5-14.5); Red Blood Cell (RBC) Count 2.43 10x6/uL (4.32-5.72); White Blood Cell (WBC) Count 10.1 10x3/uL (3.5-10.5)
[2021-12-17 06:15] LABS: Anion Gap 13 mmol/L (10-20); BUN (Urea Nitrogen) 16 mg/dL (8.4-25.7); Calc. Creatinine Clearance 64 mL/min (70-130); Calcium 8.4 mg/dL (7.8-10.44); Carbon Dioxide 16 mmol/L (22-29); Chloride 107 mmol/L (98-107); Estimated GFR 77; Glucose 114 mg/dL (70-105); Potassium 3.3 mmol/L (3.5-5.1); Sodium 133 mmol/L (136-145)
[2021-12-17] MEDS: Sodium Chloride 0.9% 1,000 ML IV SCH (07:12)
[2021-12-17 07:59] VITALS: BP 150/78; TEMP 98
[2021-12-17] MEDS ORDERED: Potassium Chloride 20 MEQ TAB PO SCH (08:00)
[2021-12-17] MEDS: Magnesium Oxide 400 MG TAB PO SCH (08:46)
[2021-12-17] MEDS: Cyanocobalamin (Vitamin B-12) 1,000 MCG TAB PO SCH (08:46)
[2021-12-17] MEDS: Multivitamin W/ Minerals 1 TAB PO SCH (08:46)
[2021-12-17] MEDS: Ferrous Sulfate 325 MG TAB PO SCH (08:46)
[2021-12-17] MEDS: Levothyroxine Sodium 25 MCG TAB PO SCH (08:46)
[2021-12-17] MEDS: Cefepime 2 GM in Sodium Chloride 0.9% 100 ML IVPB SCH (08:47)
[2021-12-17] MEDS: Enoxaparin Sodium 40 MG/0.4 ML SYRINGE SC SCH (11:43)
== END 2021-12-17 11:15 | disposition home health service (06) | DRG 854 ==
LOC: CSHERS 11:10 → CSHERHOLD 18:39 → CSHTELE 20:48
PROVIDERS: ADMIT Family Medicine; ATTEND Family Medicine
PROC: 3E03329 Introduction of Other Anti-infective into Peripheral Vein, Percutaneous Approach (ICD-10-PCS; 2021-12-12)
PROC: 0Y6X0Z0 Detachment at Right 5th Toe, Complete, Open Approach (ICD-10-PCS; principal; 2021-12-14)
DX: A41.9 Sepsis, unspecified organism (principal); E87.1 Hypo-osmolality and hyponatremia; M86.8X7 Other osteomyelitis, ankle and foot; N17.9 Acute kidney failure, unspecified; I96 Gangrene, not elsewhere classified; Z20.822 Contact with and (suspected) exposure to COVID-19; I10 Essential (primary) hypertension; M10.9 Gout, unspecified; D63.8 Anemia in other chronic diseases classified elsewhere; E87.6 Hypokalemia; E03.9 Hypothyroidism, unspecified; L97.529 Non-pressure chronic ulcer of other part of left foot with unspecified severity; E53.8 Deficiency of other specified B group vitamins; E83.42 Hypomagnesemia; Z79.899 Other long term (current) drug therapy; Z89.421 Acquired absence of other right toe(s)
CPT/HCPCS: 36415; 71045; 80048; 80053; 80202; 80306; 80307; 82607; 82728; 83540; 83550; 83605; 83735; 83880; 84484; 85025; 85046; 85610; 85730; 86850; 86900; 86901; 87040; 87070; 87076; 87077; 87149; 87186; 87205; 88305; 88311; 93005; 93010; 94760; 96365; 96375; 97139; J0692; J1650; J2001; J2543; J2704; J3370; J3475; J3490; J7050; S0020; U0002

== ENCOUNTER 2021-12-25 08:57 | Outpatient (CLI) | payer OTHER | END 2021-12-25 08:58 | disposition home or self-care (01) | LOC: CSHWCC 08:57 | PROVIDERS: ATTEND Nurse Practitioner Family | DX: T81.89XD Other complications of procedures, not elsewhere classified, subsequent encounter (principal); Z89.431 Acquired absence of right foot | CPT/HCPCS: 99204; G0463 ==

== ENCOUNTER 2022-01-01 08:36 | Outpatient (CLI) | payer OTHER | END 2022-01-01 08:37 | disposition home or self-care (01) | LOC: CSHWCC 08:36 | PROVIDERS: ATTEND Nurse Practitioner Family | DX: T81.89XD Other complications of procedures, not elsewhere classified, subsequent encounter (principal); Z89.421 Acquired absence of other right toe(s) | CPT/HCPCS: 99213; G0463 ==

== ENCOUNTER 2022-01-09 11:07 | Outpatient (CLI) | payer OTHER | END 2022-01-09 11:08 | disposition home or self-care (01) | LOC: CSHWCC 11:07 | PROVIDERS: ATTEND Nurse Practitioner Family | DX: T81.89XD Other complications of procedures, not elsewhere classified, subsequent encounter (principal); Z89.421 Acquired absence of other right toe(s) ==

== ENCOUNTER → 2022-01-25 | Emergency (ER) | payer OTHER ==
[~2022-01-25] MED LIST: Piperacillin/Tazobactam 4.5 GM VIAL ONE; Vancomycin 1 GM VIAL ONE
[2022-01-26 01:26] LABS: #Eosinphils 0.4 10x3/uL (0.0-0.5); #Monocytes 0.9 10x3/uL (0.0-1.1); #Neutrophils 13.4 10x3/uL (1.5-8.4); %Basophils 0.3 % (0.0-2.0); %Eosinophils 2.6 % (0.0-6.0); %Lymphocytes 6.2 % (18.0-47.0); %Monocytes 5.6 % (0.0-10.0); %Neutrophils 84.9 % (40.0-75.0); Hemoglobin 7.6 g/dL (13.5-17.5); Mean Corpuscular Hemoglobin 29.2 pg (27.0-33.0); Mean Corpuscular Volume 81.2 fl (81.2-95.1); Mean Platelet Volume 9.3 fl (7.4-10.4); Platelet Count 643 10x3/uL (150-450); RBC Distribution Width 14.6 % (11.5-14.5); White Blood Cell (WBC) Count 15.8 10x3/uL (3.5-10.5)
[2022-01-26 01:32] LABS: ALT (SGPT) 7 U/L (8-55); AST (SGOT) 16 U/L (5-34); Albumin 2.9 g/dL (3.5-5.0); Alkaline Phosphatase 169 U/L (40-110); Anion Gap 18 mmol/L (10-20); BUN (Urea Nitrogen) 13 mg/dL (8.4-25.7); Bilirubin, Total 0.2 mg/dL (0.2-1.2); Calc. Creatinine Clearance 0 mL/min (70-130); Calcium 9.1 mg/dL (7.8-10.44); Carbon Dioxide 16 mmol/L (22-29); Chloride 98 mmol/L (98-107); Estimated GFR 73; Glucose 137 mg/dL (70-105); Potassium 4.9 mmol/L (3.5-5.1); Protein, Total 8.9 g/dL (6.0-8.3); Sodium 127 mmol/L (136-145)
[2022-01-26 01:49] LABS: SARS-CoV-2 NAA Rapid Test Not Detected (NotDetected)
== END ==
LOC: CSHERS 22:23
DX: L08.9 Local infection of the skin and subcutaneous tissue, unspecified (principal); D64.9 Anemia, unspecified; E87.1 Hypo-osmolality and hyponatremia; I10 Essential (primary) hypertension; Z20.822 Contact with and (suspected) exposure to COVID-19
CPT/HCPCS: 80053; 83605; 85025; 85379; 87040; 87070; 87077; 87186; 87205; 93005; 96365; 96375; J2543; J3370; U0002

== ENCOUNTER 2022-02-05 14:37 | Outpatient (CLI) | payer OTHER | END 2022-02-05 14:38 | disposition home or self-care (01) | LOC: CSHWCC 14:37 | PROVIDERS: ATTEND Nurse Practitioner Family | DX: T81.89XD Other complications of procedures, not elsewhere classified, subsequent encounter (principal) | CPT/HCPCS: 97605 ==

== ENCOUNTER 2022-02-09 09:54 | Outpatient (CLI) | payer OTHER | END 2022-02-09 09:55 | disposition home or self-care (01) | LOC: CSHWCC 09:54 | PROVIDERS: ATTEND Nurse Practitioner Family | DX: T81.89XD Other complications of procedures, not elsewhere classified, subsequent encounter (principal); Z89.431 Acquired absence of right foot | CPT/HCPCS: 97605 ==

== ENCOUNTER 2022-02-13 12:49 | Outpatient (CLI) | payer OTHER | END 2022-02-13 12:50 | disposition home or self-care (01) | LOC: CSHWCC 12:49 | PROVIDERS: ATTEND Nurse Practitioner Family | DX: T81.89XD Other complications of procedures, not elsewhere classified, subsequent encounter (principal); Z89.421 Acquired absence of other right toe(s) ==

== ENCOUNTER 2022-02-16 10:45 | Outpatient (CLI) | payer OTHER | END 2022-02-16 10:46 | disposition home or self-care (01) | LOC: CSHWCC 10:45 | PROVIDERS: ATTEND Nurse Practitioner Family | DX: T81.89XD Other complications of procedures, not elsewhere classified, subsequent encounter (principal); R60.0 Localized edema | CPT/HCPCS: 97605; 99212; G0463 ==

== ENCOUNTER 2022-02-20 08:17 | Outpatient (CLI) | payer OTHER | END 2022-02-20 08:18 | disposition home or self-care (01) | LOC: CSHWCC 08:17 | PROVIDERS: ATTEND Nurse Practitioner Family | DX: T81.89XD Other complications of procedures, not elsewhere classified, subsequent encounter (principal); R60.0 Localized edema | CPT/HCPCS: 97605 ==

== ENCOUNTER 2022-02-27 14:23 | Outpatient (CLI) | payer OTHER | END 2022-02-27 14:24 | disposition home or self-care (01) | LOC: CSHWCC 14:23 | PROVIDERS: ATTEND Nurse Practitioner Family | DX: T81.89XD Other complications of procedures, not elsewhere classified, subsequent encounter (principal); R60.0 Localized edema; Z89.421 Acquired absence of other right toe(s); Z89.422 Acquired absence of other left toe(s) | CPT/HCPCS: 87070; 87205 ==

== ENCOUNTER 2022-03-02 11:47 | Outpatient (CLI) | payer OTHER | END 2022-03-02 11:48 | disposition home or self-care (01) | LOC: CSHWCC 11:47 | PROVIDERS: ATTEND Nurse Practitioner Family | DX: T81.89XD Other complications of procedures, not elsewhere classified, subsequent encounter (principal); R60.0 Localized edema; Z89.422 Acquired absence of other left toe(s); Z89.421 Acquired absence of other right toe(s) | CPT/HCPCS: 97605 ==

== ENCOUNTER 2022-03-06 10:34 | Outpatient (CLI) | payer OTHER | END 2022-03-06 10:35 | disposition home or self-care (01) | LOC: CSHWCC 10:34 | PROVIDERS: ATTEND Nurse Practitioner Family | DX: T81.89XS Other complications of procedures, not elsewhere classified, sequela (principal) | CPT/HCPCS: 99215; G0463 ==

== ENCOUNTER 2022-03-09 08:03 | Outpatient (CLI) | payer OTHER | END 2022-03-09 08:04 | disposition home or self-care (01) | LOC: CSHWCC 08:03 | PROVIDERS: ATTEND Nurse Practitioner Family | DX: T81.89XD Other complications of procedures, not elsewhere classified, subsequent encounter (principal); R60.0 Localized edema; Z89.421 Acquired absence of other right toe(s) | CPT/HCPCS: 99214; G0463 ==

== ENCOUNTER 2022-03-13 08:06 | Outpatient (CLI) | payer OTHER | END 2022-03-13 08:07 | disposition home or self-care (01) | LOC: CSHWCC 08:06 | PROVIDERS: ATTEND Nurse Practitioner Family | DX: T81.89XS Other complications of procedures, not elsewhere classified, sequela (principal); R60.0 Localized edema | CPT/HCPCS: 99214; G0463 ==

== ENCOUNTER 2022-03-16 08:09 | Outpatient (CLI) | payer OTHER | END 2022-03-16 08:10 | disposition home or self-care (01) | LOC: CSHWCC 08:09 | PROVIDERS: ATTEND Nurse Practitioner Family | DX: T81.89XA Other complications of procedures, not elsewhere classified, initial encounter (principal); R60.0 Localized edema | CPT/HCPCS: 99213; G0463 ==

== ENCOUNTER 2022-03-19 09:18 | Outpatient (CLI) | payer OTHER | END 2022-03-19 09:19 | disposition home or self-care (01) | LOC: CSHWCC 09:18 | PROVIDERS: ATTEND Nurse Practitioner Family | DX: T81.89XD Other complications of procedures, not elsewhere classified, subsequent encounter (principal); Z89.421 Acquired absence of other right toe(s) | CPT/HCPCS: 99215; G0463 ==

== ENCOUNTER 2022-03-22 13:30 | Outpatient (CLI) | payer OTHER | END 2022-03-22 13:31 | disposition home or self-care (01) | LOC: CSHWCC 13:30 | PROVIDERS: ATTEND Nurse Practitioner Family | DX: T81.89XD Other complications of procedures, not elsewhere classified, subsequent encounter (principal); R60.0 Localized edema; Z89.421 Acquired absence of other right toe(s) ==

== ENCOUNTER 2022-03-26 15:01 | Outpatient (CLI) | payer OTHER | END 2022-03-26 15:02 | disposition home or self-care (01) | LOC: CSHWCC 15:01 | PROVIDERS: ATTEND Nurse Practitioner Family | DX: T81.89XD Other complications of procedures, not elsewhere classified, subsequent encounter (principal); R60.0 Localized edema; Z89.421 Acquired absence of other right toe(s) ==

== ENCOUNTER 2022-03-30 09:04 | Outpatient (CLI) | payer OTHER | END 2022-03-30 09:05 | disposition home or self-care (01) | LOC: CSHWCC 09:04 | PROVIDERS: ATTEND Nurse Practitioner Family | DX: T81.89XD Other complications of procedures, not elsewhere classified, subsequent encounter (principal); R60.0 Localized edema | CPT/HCPCS: 99213; G0463 ==

== ENCOUNTER 2022-04-03 10:48 | Outpatient (CLI) | payer OTHER | END 2022-04-03 10:49 | disposition home or self-care (01) | LOC: CSHWCC 10:48 | PROVIDERS: ATTEND Nurse Practitioner Family | DX: T81.89XD Other complications of procedures, not elsewhere classified, subsequent encounter (principal); Z89.421 Acquired absence of other right toe(s); R60.0 Localized edema | CPT/HCPCS: 99213; G0463 ==

== ENCOUNTER 2022-04-10 10:33 | Outpatient (CLI) | payer OTHER | END 2022-04-10 10:34 | disposition home or self-care (01) | LOC: CSHWCC 10:33 | PROVIDERS: ATTEND Nurse Practitioner Family | DX: R60.0 Localized edema (principal) | CPT/HCPCS: 99213; G0463 ==

== ENCOUNTER 2022-06-13 10:44 | Inpatient (IN) | payer OTHER ==
[2022-06-13] MEDS ORDERED: Vancomycin 1 GM VIAL ONE (11:55)
[2022-06-13] MEDS ORDERED: cefTRIAXone (ROCEPHIN) 2 GM VIAL ONE (11:55)
[2022-06-13] MEDS ORDERED: Cefepime 2 GM VIAL ONE ×2 (12:00→23:53)
[2022-06-13 12:10] LABS: #Basophils 0.1 10x3/uL (0.0-0.2); #Eosinphils 0.1 10x3/uL (0.0-0.5); #Neutrophils 8.3 10x3/uL (1.5-8.4); %Basophils 0.5 % (0.0-2.0); %Eosinophils 0.8 % (0.0-6.0); Hemoglobin 9.5 g/dL (13.5-17.5); Mean Corpuscular HGB CONC 35.6 g/dL (32.0-36.0); Mean Corpuscular Hemoglobin 29.6 pg (27.0-33.0); Mean Corpuscular Volume 83.2 fl (81.2-95.1); Mean Platelet Volume 8.7 fl (7.4-10.4); Platelet Count 612 10x3/uL (150-450); RBC Distribution Width 12.6 % (11.5-14.5); Red Blood Cell (RBC) Count 3.21 10x6/uL (4.32-5.72); White Blood Cell (WBC) Count 10.7 10x3/uL (3.5-10.5)
[2022-06-13 12:21] LABS: ALT (SGPT) 7 U/L (8-55); AST (SGOT) 18 U/L (5-34); Albumin 3.2 g/dL (3.5-5.0); Alkaline Phosphatase 138 U/L (40-110); Anion Gap 16 mmol/L (10-20); BUN (Urea Nitrogen) 15 mg/dL (8.4-25.7); Bilirubin, Total 0.2 mg/dL (0.2-1.2); Calc. Creatinine Clearance 0 mL/min (70-130); Calcium 8.6 mg/dL (7.8-10.44); Carbon Dioxide 18 mmol/L (22-29); Chloride 97 mmol/L (98-107); Estimated GFR 61; Globulin 5.1 g/dL (2.4-3.5); Glucose 104 mg/dL (70-105); Potassium 4.9 mmol/L (3.5-5.1); Protein, Total 8.3 g/dL (6.0-8.3); Sodium 126 mmol/L (136-145)
[2022-06-13] MEDS ORDERED: Ondansetron PF 4 MG/2 ML Vial IVP PRN (14:14)
[2022-06-13] MEDS ORDERED: Acetaminophen 325 MG TAB PO PRN (14:14)
[2022-06-13] MEDS ORDERED: Ondansetron ODT 4 MG TAB PO PRN (14:14)
[2022-06-13] MEDS: Sodium Chloride 0.9% 1,000 ML IV SCH (17:07)
[2022-06-13 17:58] VITALS: BMI 20.9
[2022-06-13] MEDS ORDERED: Vancomycin HCl 500 MG VIAL ONE (20:41)
[2022-06-13] MEDS: Vancomycin HCl 500 MG in Sodium Chloride 0.9% 100 ML IVPB SCH (20:56)
[2022-06-14] MEDS: Cefepime 2 GM in Sodium Chloride 0.9% 100 ML IVPB SCH ×2 (00:09→12:45)
[2022-06-14 04:13] LABS: #Basophils 0.1 10x3/uL (0.0-0.2); #Eosinphils 0.2 10x3/uL (0.0-0.5); #Monocytes 0.7 10x3/uL (0.0-1.1); #Neutrophils 9.3 10x3/uL (1.5-8.4); %Basophils 0.4 % (0.0-2.0); %Eosinophils 1.8 % (0.0-6.0); %Lymphocytes 8.4 % (18.0-47.0); %Monocytes 6.1 % (0.0-10.0); %Neutrophils 82.6 % (40.0-75.0); Hemoglobin 8.9 g/dL (13.5-17.5); Mean Corpuscular HGB CONC 35.2 g/dL (32.0-36.0); Mean Corpuscular Hemoglobin 29.4 pg (27.0-33.0); Mean Corpuscular Volume 83.5 fl (81.2-95.1); Mean Platelet Volume 8.9 fl (7.4-10.4); Platelet Count 550 10x3/uL (150-450); RBC Distribution Width 12.7 % (11.5-14.5); Red Blood Cell (RBC) Count 3.03 10x6/uL (4.32-5.72); White Blood Cell (WBC) Count 11.3 10x3/uL (3.5-10.5)
[2022-06-14 04:25] LABS: Anion Gap 15 mmol/L (10-20); BUN (Urea Nitrogen) 14 mg/dL (8.4-25.7); Calc. Creatinine Clearance 62 mL/min (70-130); Calcium 9.2 mg/dL (7.8-10.44); Carbon Dioxide 19 mmol/L (22-29); Chloride 102 mmol/L (98-107); Estimated GFR 80; Glucose 103 mg/dL (70-105); Potassium 4.8 mmol/L (3.5-5.1); Sodium 131 mmol/L (136-145)
[2022-06-14] MEDS: Sodium Chloride 0.9% 1,000 ML IV SCH ×2 (06:00→12:48)
[2022-06-14] MEDS: Vancomycin HCl 500 MG in Sodium Chloride 0.9% 100 ML IVPB SCH ×2 (10:24→21:02)
[2022-06-14 20:17] LABS: Vancomycin, Trough 18.9 ug/mL
[2022-06-14] MEDS: traMADol HCl 50 MG TAB PO PRN (21:12)
[2022-06-15] MEDS: Cefepime 2 GM in Sodium Chloride 0.9% 100 ML IVPB SCH ×3 (00:35→23:20)
[2022-06-15] MEDS: Sodium Chloride 0.9% 1,000 ML IV SCH (04:59)
[2022-06-15 05:03] LABS: #Basophils 0.1 10x3/uL (0.0-0.2); #Eosinphils 0.3 10x3/uL (0.0-0.5); #Monocytes 0.8 10x3/uL (0.0-1.1); #Neutrophils 6.5 10x3/uL (1.5-8.4); %Basophils 0.6 % (0.0-2.0); %Lymphocytes 13.1 % (18.0-47.0); %Monocytes 8.5 % (0.0-10.0); %Neutrophils 73.9 % (40.0-75.0); Hemoglobin 9.4 g/dL (13.5-17.5); Mean Corpuscular HGB CONC 35.2 g/dL (32.0-36.0); Mean Corpuscular Hemoglobin 29.6 pg (27.0-33.0); Platelet Count 525 10x3/uL (150-450); RBC Distribution Width 12.7 % (11.5-14.5); Red Blood Cell (RBC) Count 3.18 10x6/uL (4.32-5.72); White Blood Cell (WBC) Count 8.8 10x3/uL (3.5-10.5)
[2022-06-15 05:09] LABS: Anion Gap 13 mmol/L (10-20); BUN (Urea Nitrogen) 13 mg/dL (8.4-25.7); Calc. Creatinine Clearance 68 mL/min (70-130); Calcium 9.2 mg/dL (7.8-10.44); Carbon Dioxide 19 mmol/L (22-29); Chloride 100 mmol/L (98-107); Estimated GFR 88; Glucose 101 mg/dL (70-105); Potassium 4.1 mmol/L (3.5-5.1); Sodium 128 mmol/L (136-145)
[2022-06-15] MEDS ORDERED: Bupivacaine 0.25% HCL 30 ML VIAL ONE (06:32)
[2022-06-15] MEDS ORDERED: PROPOFOL 20 ML ONE ×2 (07:28→08:04)
[2022-06-15] MEDS ORDERED: Fentanyl 100 MCG/2 ML VIAL ONE (07:28)
[2022-06-15] MEDS ORDERED: Glycopyrrolate 0.2 MG/ML 5 ML SYRINGE ONE (07:47)
[2022-06-15] MEDS ORDERED: Ondansetron PF 4 MG/2 ML Vial ONE ×2 (07:47)
[2022-06-15] MEDS ORDERED: Dexamethasone 4 mg/ml Vial ONE (07:47)
[2022-06-15] MEDS ORDERED: PHENYLEPHRINE-NS 100 MCG/ML 10 ML SYRINGE ONE (08:10)
[2022-06-15] MEDS: Vancomycin HCl 500 MG in Sodium Chloride 0.9% 100 ML IVPB SCH (10:57)
[2022-06-15] MEDS: traMADol HCl 50 MG TAB PO PRN (15:36)
[2022-06-15] MEDS ORDERED: Amlodipine 5 MG TAB PO SCH (18:00)
[2022-06-16 04:47] LABS: Anion Gap 14 mmol/L (10-20); BUN (Urea Nitrogen) 12 mg/dL (8.4-25.7); Calc. Creatinine Clearance 62 mL/min (70-130); Calcium 8.2 mg/dL (7.8-10.44); Carbon Dioxide 17 mmol/L (22-29); Chloride 101 mmol/L (98-107); Estimated GFR 79; Glucose 85 mg/dL (70-105); Potassium 3.7 mmol/L (3.5-5.1); Sodium 128 mmol/L (136-145)
[2022-06-16 04:53] LABS: #Eosinphils 0.3 10x3/uL (0.0-0.5); #Monocytes 0.9 10x3/uL (0.0-1.1); #Neutrophils 8.2 10x3/uL (1.5-8.4); %Basophils 0.4 % (0.0-2.0); %Eosinophils 2.4 % (0.0-6.0); %Lymphocytes 11.3 % (18.0-47.0); %Monocytes 8.5 % (0.0-10.0); %Neutrophils 76.8 % (40.0-75.0); Hemoglobin 7.9 g/dL (13.5-17.5); Mean Corpuscular HGB CONC 35.1 g/dL (32.0-36.0); Mean Corpuscular Hemoglobin 29.3 pg (27.0-33.0); Mean Corpuscular Volume 83.3 fl (81.2-95.1); Platelet Count 411 10x3/uL (150-450); RBC Distribution Width 12.5 % (11.5-14.5); White Blood Cell (WBC) Count 10.7 10x3/uL (3.5-10.5)
[2022-06-16] MEDS ORDERED: Vancomycin HCl 750 MG in Sodium Chloride 0.9% 250 ML 250 ML IVPB SCH (09:00)
[2022-06-16] MEDS: Amlodipine 5 MG TAB PO SCH (09:08)
[2022-06-16] MEDS: traMADol HCl 50 MG TAB PO PRN (09:29)
[2022-06-16] MEDS ORDERED: HYDROcodone/Acetaminophen 5/325 mg Tablet PO PRN (12:03)
[2022-06-16] MEDS: Cefepime 2 GM in Sodium Chloride 0.9% 100 ML IVPB SCH ×2 (13:28→23:57)
[2022-06-17 05:05] LABS: #Basophils 0.1 10x3/uL (0.0-0.2); #Eosinphils 0.2 10x3/uL (0.0-0.5); #Monocytes 0.8 10x3/uL (0.0-1.1); %Basophils 0.6 % (0.0-2.0); %Eosinophils 2.5 % (0.0-6.0); %Lymphocytes 12.7 % (18.0-47.0); %Monocytes 10.3 % (0.0-10.0); %Neutrophils 73.3 % (40.0-75.0); Hemoglobin 8.3 g/dL (13.5-17.5); Mean Corpuscular HGB CONC 35.2 g/dL (32.0-36.0); Mean Corpuscular Hemoglobin 29.5 pg (27.0-33.0); Mean Platelet Volume 9.2 fl (7.4-10.4); Platelet Count 434 10x3/uL (150-450); RBC Distribution Width 12.3 % (11.5-14.5); Red Blood Cell (RBC) Count 2.81 10x6/uL (4.32-5.72); White Blood Cell (WBC) Count 8.1 10x3/uL (3.5-10.5)
[2022-06-17 05:15] LABS: Anion Gap 17 mmol/L (10-20); BUN (Urea Nitrogen) 13 mg/dL (8.4-25.7); Calc. Creatinine Clearance 59 mL/min (70-130); Calcium 8.8 mg/dL (7.8-10.44); Carbon Dioxide 17 mmol/L (22-29); Chloride 101 mmol/L (98-107); Estimated GFR 75; Glucose 80 mg/dL (70-105); Sodium 131 mmol/L (136-145)
[2022-06-17 08:51] LABS: Vancomycin, Trough 14.4 ug/mL
[2022-06-17] MEDS: Amlodipine 5 MG TAB PO SCH (09:26)
[2022-06-18 04:50] LABS: #Basophils 0.1 10x3/uL (0.0-0.2); #Eosinphils 0.2 10x3/uL (0.0-0.5); #Monocytes 0.9 10x3/uL (0.0-1.1); #Neutrophils 5.2 10x3/uL (1.5-8.4); %Basophils 0.9 % (0.0-2.0); %Eosinophils 3.2 % (0.0-6.0); %Lymphocytes 15.7 % (18.0-47.0); %Monocytes 11.2 % (0.0-10.0); %Neutrophils 68.6 % (40.0-75.0); Hemoglobin 8.5 g/dL (13.5-17.5); Mean Corpuscular HGB CONC 35.7 g/dL (32.0-36.0); Mean Corpuscular Hemoglobin 29.5 pg (27.0-33.0); Mean Corpuscular Volume 82.6 fl (81.2-95.1); Mean Platelet Volume 9.6 fl (7.4-10.4); Platelet Count 422 10x3/uL (150-450); RBC Distribution Width 12.3 % (11.5-14.5); Red Blood Cell (RBC) Count 2.88 10x6/uL (4.32-5.72); White Blood Cell (WBC) Count 7.6 10x3/uL (3.5-10.5)
[2022-06-18 04:57] LABS: Anion Gap 14 mmol/L (10-20); BUN (Urea Nitrogen) 13 mg/dL (8.4-25.7); Calc. Creatinine Clearance 61 mL/min (70-130); Calcium 8.8 mg/dL (7.8-10.44); Carbon Dioxide 21 mmol/L (22-29); Chloride 101 mmol/L (98-107); Estimated GFR 78; Glucose 121 mg/dL (70-105); Potassium 3.9 mmol/L (3.5-5.1); Sodium 132 mmol/L (136-145)
[2022-06-18] MEDS: Amlodipine 5 MG TAB PO SCH (09:09)
[2022-06-18 09:52] VITALS: BP 173/95; TEMP 97.9
== END 2022-06-18 13:00 | disposition home or self-care (01) | DRG 464 ==
LOC: CSHERS 10:44 → SUATTDRO 10:44 → CSHERHOLD 16:37 → CSHTELE 06-14 07:08
PROVIDERS: ADMIT Internal Medicine; ATTEND Internal Medicine
PROC: 0Y6M0ZC Detachment at Right Foot, Partial 3rd Ray, Open Approach (ICD-10-PCS; principal; 2022-06-15)
PROC: 0JBQ0ZZ Excision of Right Foot Subcutaneous Tissue and Fascia, Open Approach (ICD-10-PCS; 2022-06-15)
PROC: 2W1UX6Z Compression of Right Toe using Pressure Dressing (ICD-10-PCS; 2022-06-15)
DX: M86.8X7 Other osteomyelitis, ankle and foot (principal); E87.1 Hypo-osmolality and hyponatremia; I96 Gangrene, not elsewhere classified; L97.519 Non-pressure chronic ulcer of other part of right foot with unspecified severity; M10.9 Gout, unspecified; D63.8 Anemia in other chronic diseases classified elsewhere; F10.20 Alcohol dependence, uncomplicated; I12.9 Hypertensive chronic kidney disease with stage 1 through stage 4 chronic kidney disease, or unspecified chronic kidney disease; N18.30 Chronic kidney disease, stage 3 unspecified; Z79.890 Hormone replacement therapy; Z79.899 Other long term (current) drug therapy; Z89.422 Acquired absence of other left toe(s); Z89.421 Acquired absence of other right toe(s); Z71.41 Alcohol abuse counseling and surveillance of alcoholic
CPT/HCPCS: 36415; 80048; 80053; 80202; 83605; 85025; 87040; 87070; 87077; 87186; 87205; 96365; 96366; 96367; 97139; J0692; J0696; J1100; J1650; J2405; J2704; J3010; J3370; J3490; J7050; S0020

== ENCOUNTER 2022-06-21 08:34 | Outpatient (CLI) | payer OTHER | END 2022-06-21 08:35 | disposition home or self-care (01) | LOC: CSHWCC 08:34 | PROVIDERS: ATTEND Nurse Practitioner Family | DX: T81.89XD Other complications of procedures, not elsewhere classified, subsequent encounter (principal); Z89.421 Acquired absence of other right toe(s); R60.0 Localized edema ==

== ENCOUNTER 2022-06-25 08:57 | Outpatient (CLI) | payer OTHER | END 2022-06-25 08:58 | disposition home or self-care (01) | LOC: CSHWCC 08:57 | PROVIDERS: ATTEND Nurse Practitioner Family | DX: T81.89XD Other complications of procedures, not elsewhere classified, subsequent encounter (principal); R60.0 Localized edema; Z89.421 Acquired absence of other right toe(s) ==

== ENCOUNTER 2022-06-28 15:19 | Outpatient (CLI) | payer OTHER | END 2022-06-28 15:20 | disposition home or self-care (01) | LOC: CSHWCC 15:19 | PROVIDERS: ATTEND Nurse Practitioner Family | DX: T81.89XD Other complications of procedures, not elsewhere classified, subsequent encounter (principal); R60.0 Localized edema | CPT/HCPCS: 11042; 29581; 97605 ==

== ENCOUNTER 2022-07-26 08:55 | Outpatient (CLI) | payer OTHER | END 2022-07-26 08:56 | disposition home or self-care (01) | LOC: CSHWCC 08:55 | PROVIDERS: ATTEND Nurse Practitioner Family | DX: T81.89XD Other complications of procedures, not elsewhere classified, subsequent encounter (principal) | CPT/HCPCS: 99212; G0463 ==

== ENCOUNTER 2022-07-30 09:46 | Outpatient (CLI) | payer OTHER | END 2022-07-30 09:47 | disposition home or self-care (01) | LOC: CSHWCC 09:46 | PROVIDERS: ATTEND Nurse Practitioner Family | DX: T81.89XD Other complications of procedures, not elsewhere classified, subsequent encounter (principal) | CPT/HCPCS: 99213; G0463 ==

== ENCOUNTER 2022-09-27 18:20 | Emergency (ER) | payer OTHER ==
[2022-09-27 20:08] LABS: Hematocrit 31.6 % (38.8-50.0); Hemoglobin 11.8 g/dL (13.5-17.5); Mean Corpuscular HGB CONC 37.3 g/dL (32.0-36.0); Mean Corpuscular Hemoglobin 33.1 pg (27.0-33.0); Mean Corpuscular Volume 88.5 fl (81.2-95.1); Mean Platelet Volume 9.3 fl (7.4-10.4); Platelet Count 281 10x3/uL (150-450); RBC Distribution Width 12.3 % (11.5-14.5); Red Blood Cell (RBC) Count 3.57 10x6/uL (4.32-5.72); White Blood Cell (WBC) Count 12.2 10x3/uL (3.5-10.5)
[2022-09-27 20:25] LABS: Bilirubin Neg (Negative); Blood, Urine 25 (Negative); Clarity Clear (Clear); Glucose, Urine (Dipstick) 50 mg/dL (Negative); Ketone, Urine 5 mg/dL (Negative); Leukocyte Negative (Negative); Nitrite Negative (Negative); Protein, Urine (Dipstick) 100 mg/dl (Neg-Trace); Urobilinogen Normal mg/dL (Less than 2)
[2022-09-27 20:25] LABS: ALT (SGPT) 12 U/L (8-55); AST (SGOT) 24 U/L (5-34); Albumin 3.7 g/dL (3.5-5.0); Alkaline Phosphatase 125 U/L (40-110); Anion Gap 21 mmol/L (10-20); BUN (Urea Nitrogen) 16 mg/dL (8.4-25.7); Bilirubin, Total 0.7 mg/dL (0.2-1.2); Calc. Creatinine Clearance 0 mL/min (70-130); Calcium 8.6 mg/dL (7.8-10.44); Carbon Dioxide 20 mmol/L (22-29); Chloride 95 mmol/L (98-107); Estimated GFR 53; Globulin 4.6 g/dL (2.4-3.5); Glucose 126 mg/dL (70-105); Lipase 42 U/L (8-78); Potassium 5.6 mmol/L (3.5-5.1); Protein, Total 8.3 g/dL (6.0-8.3); Sodium 130 mmol/L (136-145)
[2022-09-27 20:27] LABS: Troponin I 0.011 ng/mL (< 0.028)
[2022-09-27 20:29] LABS: MDiff Complete? YES
[2022-09-27 20:31] LABS: Lymphocytes 3 % (21-51); Monocytes 1 % (0-10); Neutrophil 96 % (42-75)
[2022-09-27 20:32] LABS: Platelet Adequacy Comment Appears Adequate; RBC Morph Comment Within Normal Limits
[2022-09-27] MEDS ORDERED: Acetaminophen 325 MG TAB ONE (20:43)
[2022-09-27] MEDS ORDERED: Piperacillin/Tazobactam 4.5 GM VIAL ONE (20:43)
[2022-09-27 20:45] LABS: Bacteria/HPF None Seen HPF (None Seen); CAUTI Indications for Culture Fever or rigors; RBC/HPF 0-3 HPF (0-3); Squamous Epithelial None Seen HPF (0-3); Urine Culture Reflex No No; WBC/HPF None Seen HPF (0-3)
[2022-09-27 20:50] LABS: Magnesium 1.4 mg/dL (1.6-2.6)
[2022-09-27] MEDS ORDERED: Magnesium 2 GM/50 ML BAG (IN WATER) ONE (21:32)
[2022-09-27] MEDS ORDERED: Vancomycin 1 GM VIAL ONE (21:32)
[2022-09-27 23:17] LABS: Anion Gap 20 mmol/L (10-20); BUN (Urea Nitrogen) 15 mg/dL (8.4-25.7); Calc. Creatinine Clearance 0 mL/min (70-130); Calcium 8.6 mg/dL (7.8-10.44); Carbon Dioxide 20 mmol/L (22-29); Chloride 97 mmol/L (98-107); Estimated GFR 56; Glucose 114 mg/dL (70-105); Potassium 4.2 mmol/L (3.5-5.1); Sodium 133 mmol/L (136-145)
[2022-09-28] MEDS ORDERED: Ondansetron PF 4 MG/2 ML Vial ONE (00:26)
[2022-09-28] MEDS ORDERED: Promethazine HCl 25 MG, Admixture Fee 1 EACH in Sodium Chloride 0.9% 50 ML IVPB SCH (01:30)
== END 2022-09-28 03:54 | disposition short-term general hospital (02) ==
LOC: CSHERS 18:20
DX: A41.9 Sepsis, unspecified organism (principal); I10 Essential (primary) hypertension
CPT/HCPCS: 36415; 71045; 80053; 81001; 83605; 83690; 83735; 84484; 85025; 87040; 87070; 87077; 87149; 87186; 87205; 93005; 96365; 96366; 96367; 96368; 96375; J2405; J2543; J2550; J3370; J3475

== ENCOUNTER 2022-10-19 09:23 | Outpatient (CLI) | payer OTHER | END 2022-10-19 09:24 | disposition home or self-care (01) | LOC: CSHWCC 09:23 | PROVIDERS: ATTEND Nurse Practitioner Family | DX: T87.89 Other complications of amputation stump (principal); R60.0 Localized edema | CPT/HCPCS: 99213; G0463 ==

== ENCOUNTER 2022-10-25 11:01 | Outpatient (CLI) | payer OTHER | END 2022-10-25 11:02 | disposition home or self-care (01) | LOC: CSHWCC 11:01 | PROVIDERS: ATTEND Nurse Practitioner Family | DX: R60.1 Generalized edema (principal); T87.89 Other complications of amputation stump | CPT/HCPCS: 99212; G0463 ==

== ENCOUNTER 2022-11-01 15:32 | Emergency (ER) | payer OTHER | END 2022-11-01 17:04 | disposition home or self-care (01) | LOC: CSHERS 15:32 | DX: Z48.89 Encounter for other specified surgical aftercare (principal); I10 Essential (primary) hypertension | CPT/HCPCS: 99282 ==

== ENCOUNTER 2022-11-26 16:35 | Emergency (ER) | payer OTHER | END 2022-11-26 17:55 | disposition home or self-care (01) | LOC: CSHERS 16:35 | DX: Z47.81 Encounter for orthopedic aftercare following surgical amputation (principal); I10 Essential (primary) hypertension | CPT/HCPCS: 99282 ==

== ENCOUNTER 2023-04-26 16:03 | Emergency (ER) | payer OTHER ==
[2023-04-26 17:01] LABS: #Eosinphils 0.3 10x3/uL (0.0-0.5); #Monocytes 0.6 10x3/uL (0.0-1.1); #Neutrophils 4.8 10x3/uL (1.5-8.4); %Basophils 0.4 % (0.0-2.0); %Eosinophils 3.5 % (0.0-6.0); %Lymphocytes 19.6 % (18.0-47.0); %Monocytes 8.7 % (0.0-10.0); %Neutrophils 67.5 % (40.0-75.0); Hematocrit 24.5 % (38.8-50.0); Hemoglobin 8.7 g/dL (13.5-17.5); Mean Corpuscular HGB CONC 35.5 g/dL (32.0-36.0); Mean Corpuscular Hemoglobin 30.2 pg (27.0-33.0); Mean Corpuscular Volume 85.1 fl (81.2-95.1); Mean Platelet Volume 10.3 fl (7.4-10.4); Platelet Count 325 10x3/uL (150-450); RBC Distribution Width 14.8 % (11.5-14.5); Red Blood Cell (RBC) Count 2.88 10x6/uL (4.32-5.72); White Blood Cell (WBC) Count 7.1 10x3/uL (3.5-10.5)
[2023-04-26 17:10] LABS: ALT (SGPT) Less than 7 U/L (8-55); AST (SGOT) 17 U/L (5-34); Albumin 3.7 g/dL (3.5-5.0); Alkaline Phosphatase 107 U/L (40-110); Anion Gap 17 mmol/L (10-20); BUN (Urea Nitrogen) 28 mg/dL (8.4-25.7); Bilirubin, Total 0.4 mg/dL (0.2-1.2); Calc. Creatinine Clearance 0 mL/min (70-130); Carbon Dioxide 19 mmol/L (22-29); Chloride 103 mmol/L (98-107); Estimated GFR 52; Glucose 129 mg/dL (70-105); Potassium 4.4 mmol/L (3.5-5.1); Protein, Total 8.7 g/dL (6.0-8.3); Sodium 135 mmol/L (136-145)
[2023-04-26] MEDS ORDERED: Ondansetron PF 4 MG/2 ML Vial IVP PRN (18:28)
[2023-04-26] MEDS ORDERED: Acetaminophen 325 MG TAB PO PRN (18:28)
[2023-04-26] MEDS ORDERED: Ondansetron ODT 4 MG TAB PO PRN (18:28)
[2023-04-26] MEDS ORDERED: Sodium Chloride 0.9% 1,000 ML IV SCH (18:30)
[2023-04-27] MEDS ORDERED: Vancomycin 1 GM VIAL ONE (00:19)
[2023-04-27] MEDS ORDERED: Cefepime 2 GM VIAL ONE (00:20)
[2023-04-27 03:47] LABS: #Eosinphils 0.2 10x3/uL (0.0-0.5); #Monocytes 0.5 10x3/uL (0.0-1.1); %Basophils 0.3 % (0.0-2.0); %Lymphocytes 21.1 % (18.0-47.0); %Monocytes 7.9 % (0.0-10.0); %Neutrophils 67.4 % (40.0-75.0); Hematocrit 22.2 % (38.8-50.0); Hemoglobin 7.8 g/dL (13.5-17.5); Mean Corpuscular HGB CONC 35.1 g/dL (32.0-36.0); Mean Corpuscular Volume 85.4 fl (81.2-95.1); Mean Platelet Volume 10.2 fl (7.4-10.4); Platelet Count 269 10x3/uL (150-450); RBC Distribution Width 14.8 % (11.5-14.5)
[2023-04-27 04:12] LABS: Anion Gap 14 mmol/L (10-20); BUN (Urea Nitrogen) 22 mg/dL (8.4-25.7); Calc. Creatinine Clearance 0 mL/min (70-130); Carbon Dioxide 19 mmol/L (22-29); Chloride 107 mmol/L (98-107); Estimated GFR 72; Glucose 102 mg/dL (70-105); Potassium 4.4 mmol/L (3.5-5.1); Sodium 136 mmol/L (136-145)
== END 2023-04-27 05:10 | disposition short-term general hospital (02) ==
LOC: CSHERS 16:03
DX: S91.302A Unspecified open wound, left foot, initial encounter (principal); I10 Essential (primary) hypertension; M86.9 Osteomyelitis, unspecified; Z55.6 Problems related to health literacy; X58.XXXA Exposure to other specified factors, initial encounter
CPT/HCPCS: 36415; 80048; 80053; 83605; 85025; 86140; 87040; J0692; J3370

== ENCOUNTER 2023-05-13 09:25 | Outpatient (CLI) | payer OTHER | END 2023-05-13 09:26 | disposition home or self-care (01) | LOC: CSHWCC 09:25 | PROVIDERS: ATTEND Nurse Practitioner Family | DX: L97.522 Non-pressure chronic ulcer of other part of left foot with fat layer exposed (principal); I73.9 Peripheral vascular disease, unspecified; N18.9 Chronic kidney disease, unspecified; M20.12 Hallux valgus (acquired), left foot | CPT/HCPCS: 11042; 99213; G0463 ==

== ENCOUNTER 2023-05-20 12:23 | Outpatient (CLI) | payer OTHER | END 2023-05-20 12:24 | disposition home or self-care (01) | LOC: CSHWCC 12:23 | PROVIDERS: ATTEND Nurse Practitioner Family | DX: L97.522 Non-pressure chronic ulcer of other part of left foot with fat layer exposed (principal); I73.9 Peripheral vascular disease, unspecified; N18.9 Chronic kidney disease, unspecified; M20.12 Hallux valgus (acquired), left foot | CPT/HCPCS: 97597 ==

== ENCOUNTER 2023-07-28 19:24 | Emergency (ER) | payer OTHER | END 2023-07-28 20:41 | disposition home or self-care (01) | LOC: CSHERS 19:24 | DX: L85.3 Xerosis cutis (principal); I73.9 Peripheral vascular disease, unspecified; I10 Essential (primary) hypertension; Z75.3 Unavailability and inaccessibility of health-care facilities | CPT/HCPCS: 36416; 99283 ==

== ENCOUNTER 2024-10-21 08:08 | Outpatient (CLI) | payer OTHER | END 2024-10-21 08:09 | disposition home or self-care (01) | LOC: CSHWCC 08:08 | PROVIDERS: ATTEND Nurse Practitioner Family | DX: L89.893 Pressure ulcer of other site, stage 3 (principal); I87.312 Chronic venous hypertension (idiopathic) with ulcer of left lower extremity; L97.929 Non-pressure chronic ulcer of unspecified part of left lower leg with unspecified severity; M20.12 Hallux valgus (acquired), left foot; E11.59 Type 2 diabetes mellitus with other circulatory complications | CPT/HCPCS: 11042; 99212; G0463 ==

== ENCOUNTER 2024-10-27 09:27 | Outpatient (CLI) | payer OTHER | END 2024-10-27 09:28 | disposition home or self-care (01) | LOC: CSHWCC 09:27 | PROVIDERS: ATTEND Nurse Practitioner Family | DX: L89.893 Pressure ulcer of other site, stage 3 (principal); I87.312 Chronic venous hypertension (idiopathic) with ulcer of left lower extremity; L97.929 Non-pressure chronic ulcer of unspecified part of left lower leg with unspecified severity; M20.12 Hallux valgus (acquired), left foot; I73.9 Peripheral vascular disease, unspecified; N18.9 Chronic kidney disease, unspecified | CPT/HCPCS: 11042; 99213; G0463 ==

== ENCOUNTER 2024-11-03 10:08 | Outpatient (CLI) | payer OTHER | END 2024-11-03 10:09 | disposition home or self-care (01) | LOC: CSHWCC 10:08 | PROVIDERS: ATTEND Nurse Practitioner Family | DX: L89.893 Pressure ulcer of other site, stage 3 (principal); I87.312 Chronic venous hypertension (idiopathic) with ulcer of left lower extremity; N18.9 Chronic kidney disease, unspecified; I73.9 Peripheral vascular disease, unspecified; M20.12 Hallux valgus (acquired), left foot; L08.9 Local infection of the skin and subcutaneous tissue, unspecified | CPT/HCPCS: 11042 ==

== ENCOUNTER 2024-11-10 09:47 | Outpatient (CLI) | payer OTHER | END 2024-11-10 09:48 | disposition home or self-care (01) | LOC: CSHWCC 09:47 | PROVIDERS: ATTEND Nurse Practitioner Family | DX: L89.893 Pressure ulcer of other site, stage 3 (principal); I87.312 Chronic venous hypertension (idiopathic) with ulcer of left lower extremity; L97.929 Non-pressure chronic ulcer of unspecified part of left lower leg with unspecified severity; M20.12 Hallux valgus (acquired), left foot; N18.9 Chronic kidney disease, unspecified; L08.9 Local infection of the skin and subcutaneous tissue, unspecified; I73.9 Peripheral vascular disease, unspecified | CPT/HCPCS: 11042 ==

== ENCOUNTER 2024-11-17 10:16 | Outpatient (CLI) | payer OTHER | END 2024-11-17 10:17 | disposition home or self-care (01) | LOC: CSHWCC 10:16 | PROVIDERS: ATTEND Nurse Practitioner Family | DX: L89.893 Pressure ulcer of other site, stage 3 (principal); I87.312 Chronic venous hypertension (idiopathic) with ulcer of left lower extremity; L97.929 Non-pressure chronic ulcer of unspecified part of left lower leg with unspecified severity; I73.9 Peripheral vascular disease, unspecified; N18.9 Chronic kidney disease, unspecified; M20.12 Hallux valgus (acquired), left foot; L08.9 Local infection of the skin and subcutaneous tissue, unspecified | CPT/HCPCS: 97597 ==

== ENCOUNTER 2024-11-30 10:50 | Outpatient (CLI) | payer OTHER | END 2024-11-30 10:51 | disposition home or self-care (01) | LOC: CSHWCC 10:50 | PROVIDERS: ATTEND Nurse Practitioner Family | DX: I87.312 Chronic venous hypertension (idiopathic) with ulcer of left lower extremity (principal); L89.893 Pressure ulcer of other site, stage 3; I73.9 Peripheral vascular disease, unspecified; N18.9 Chronic kidney disease, unspecified; M20.12 Hallux valgus (acquired), left foot | CPT/HCPCS: 97597 ==

== ENCOUNTER 2024-12-15 11:19 | Outpatient (CLI) | payer OTHER | END 2024-12-15 11:20 | disposition home or self-care (01) | LOC: CSHWCC 11:19 | PROVIDERS: ATTEND Nurse Practitioner Family | DX: I87.312 Chronic venous hypertension (idiopathic) with ulcer of left lower extremity (principal); L97.929 Non-pressure chronic ulcer of unspecified part of left lower leg with unspecified severity; L89.893 Pressure ulcer of other site, stage 3; I73.9 Peripheral vascular disease, unspecified; N18.9 Chronic kidney disease, unspecified; M20.12 Hallux valgus (acquired), left foot | CPT/HCPCS: 97597 ==

== ENCOUNTER 2024-12-22 11:28 | Outpatient (CLI) | payer OTHER | END 2024-12-22 11:29 | disposition home or self-care (01) | LOC: CSHWCC 11:28 | PROVIDERS: ATTEND Nurse Practitioner Family | DX: L89.893 Pressure ulcer of other site, stage 3 (principal); I87.312 Chronic venous hypertension (idiopathic) with ulcer of left lower extremity; L97.929 Non-pressure chronic ulcer of unspecified part of left lower leg with unspecified severity; I73.9 Peripheral vascular disease, unspecified; N18.9 Chronic kidney disease, unspecified; M20.12 Hallux valgus (acquired), left foot | CPT/HCPCS: 11042 ==

== ENCOUNTER 2025-01-05 13:12 | Outpatient (CLI) | payer OTHER | END 2025-01-05 13:13 | disposition home or self-care (01) | LOC: CSHWCC 13:12 | PROVIDERS: ATTEND Nurse Practitioner Family | DX: L89.893 Pressure ulcer of other site, stage 3 (principal); I87.312 Chronic venous hypertension (idiopathic) with ulcer of left lower extremity; L97.929 Non-pressure chronic ulcer of unspecified part of left lower leg with unspecified severity; I73.9 Peripheral vascular disease, unspecified; N18.9 Chronic kidney disease, unspecified; M20.12 Hallux valgus (acquired), left foot | CPT/HCPCS: 97597 ==

== ENCOUNTER 2025-01-26 09:45 | Outpatient (CLI) | payer OTHER | END 2025-01-26 09:46 | disposition home or self-care (01) | LOC: CSHWCC 09:45 | PROVIDERS: ATTEND Nurse Practitioner Family | DX: L89.893 Pressure ulcer of other site, stage 3 (principal); I87.312 Chronic venous hypertension (idiopathic) with ulcer of left lower extremity; L97.929 Non-pressure chronic ulcer of unspecified part of left lower leg with unspecified severity; I73.9 Peripheral vascular disease, unspecified; N18.9 Chronic kidney disease, unspecified; M20.12 Hallux valgus (acquired), left foot | CPT/HCPCS: 11042 ==